=== PATIENT | female | born 1990 | race African-American/Black ===

== ENCOUNTER 2017-02-11 20:42 | Emergency (ER) | payer OTHER ==
[~2017-02-11] VITALS: Ht 170.2 cm; Wt 143.3 kg
[2017-02-11 21:53] LABS: BASO # 0.1 x10^3/uL (0.0-0.2); BASO % 1 % (0-3); EOS % 1 % (0-3); HEMATOCRIT 35.1 % (36.0-47.0); HEMOGLOBIN 11.4 g/dL (12.0-15.5); LYMPH # 2.2 x10^3/uL (1.0-4.8); LYMPH % 16 % (24-48); MEAN CORPUSCULAR HEMOGLOBIN 26 pg (25-35); MEAN CORPUSCULAR HGB CONC 32 g/dL (31-37); MEAN CORPUSCULAR VOLUME 81 fL (79-100); MONO % 5 % (0-9); NEUT % 77 % (31-73); PLATELET COUNT 313 x10^3/uL (140-400); RED BLOOD COUNT 4.35 x10^6/uL (3.50-5.40); RED CELL DISTRIBUTION WIDTH 16.7 % (11.5-14.5); WHITE BLOOD COUNT 13.6 x10^3/uL (4.0-11.0)
[2017-02-11 22:01] LABS: CALCIUM 8.8 mg/dL (8.5-10.1); CREATININE 0.7 mg/dL (0.6-1.0); GFR 122.4; POTASSIUM 3.9 mmol/L (3.5-5.1)
[2017-02-11 22:07] LABS: ALBUMIN 2.8 g/dL (3.4-5.0); ALBUMIN/GLOBULIN RATIO 0.6 (1.0-1.7); TOTAL BILIRUBIN 0.1 mg/dL (0.2-1.0); TOTAL PROTEIN 7.2 g/dL (6.4-8.2)
--- NOTE | 2017-02-11 23:00 | RAD ---
OB ultrasound History: Vaginal spotting, suprapubic pain for one week. Comparison: None this . Findings: Examination is technically difficult secondary to patient body habitus. Maternal ovaries are not seen. Complete survey anomalies was not performed secondary to early gestation. There is a single intrauterine gestation in breech presentation. The placenta is anterior in location. The amount of amniotic fluid subjectively appears appropriate. Cervix is closed with cervical length of 4.39 cm. Biometric data is as follows: BPD = 2.77 cm for 15 weeks 0 days. HC = 11.17 cm for 15 weeks 3 days. AC = 9.63 cm for 15 weeks 5 days. FL = 1.85 cm for 15 weeks 3 days. HC/AC = 1.16. Overall, the average ultrasound age is 15 weeks 3 days for an estimated date of delivery of August 02, 2017. The estimated heart rate is 162 beats per minute. IMPRESSION: 1. Single live intrauterine with average ultrasound age of 15 weeks 3 days. Estimated date of delivery is August 02, 2017. 2. Survey of anomalies was not performed. Such could be performed at 20 weeks gestation, after approximately 5 weeks. Electronically signed by: Oswald Lopez MD (02/11/2017 10:57 PM) [facility]
--- NOTE | 2017-02-11 23:09 | PHYS DOC ---
Past Medical History Past Medical History: Hypertension Past Surgical History: Cholecystectomy, Alcohol Use: Heavy Additional Information: denies now Drug Use: None Adult General Chief Complaint Chief Complaint: VAGINAL BLEEDING HPI HPI Patient is a 27 year old female, 4 para 2 who states she is about 15 weeks , presents with abdominal pain for about 2 days. The pain is in the midline and "feels like something inside of me is pulling in on my belly button and my rectum". Patient has never had this kind of pain before. Patient states she has had a bit of vaginal spotting but she has had that off and on with her and she didn't think it was anything to worry about. She came in for the pain. Patient states she is not constipated. She has loose stools ever since cholecystectomy. Patient has not had care yet. She recently moved to the area. She had an OB ultrasound in [place] before coming here. She does have a new OB appointment coming up on 02/19. Patient denies nausea or vomiting. She has been feeling pretty well. First was a miscarriage, she has a 4-year-old and a 1-year-old. She did have a . She has also had laparoscopic cholecystectomy. Review of Systems Review of Systems Constitutional: Denies fever or chills [] HENT: Denies nasal congestion or sore throat [] Respiratory: Denies cough or shortness of breath [] Cardiovascular: Denies chest pain GI: As in history of present illness : Denies dysuria or hematuria [] Musculoskeletal: Denies back pain or joint pain [] Integument: Denies rash or skin lesions [] Neurologic: Denies headache Allergies Allergies Allergies Coded Allergies Type Severity Reaction Last Updated Verified No Known Drug Allergies 02/11/17 No Physical Exam Physical Exam Constitutional: Well developed, well nourished, no acute distress, non-toxic appearance. Alert, mentating normally, warm and dry. HENT: Normocephalic, atraumatic, bilateral external ears normal, nose normal. [ ] Eyes: conjunctiva normal, no discharge. [] Neck: Normal range of motion, no stridor. [] Cardiovascular:Heart rate regular rhythm, no murmur [] Lungs & Thorax: Bilateral breath sounds clear to auscultation [] Abdomen: Obese, Bowel sounds normal, soft, nondistended, no masses, no pulsatile masses. There is mild tenderness in the midline and to the left of the midline. There is no right lower quadrant tenderness. No rebound or guarding. Skin: Warm, dry, no erythema, no rash. [] Extremities: No tenderness, no cyanosis, no clubbing, ROM intact, no edema. [] Neurologic: Alert and oriented X 3, normal motor function, no focal deficits noted. [] Current Patient Data Vital Signs Vital Signs Date Time Temp Pulse Resp B/P (MAP) Pulse Ox O2 Delivery O2 Flow Rate FiO2 02/11/17 20:57 99.0 94 18 141/67 (91) 100 Room Air 99.0 Lab Values Laboratory Tests Test 02/11/17 20:55 02/11/17 21:40 POC Urine HCG, Qualitative Hcg positive (Negative) White Blood Count 13.6 x10^3/uL (4.0-11.0) H Red Blood Count 4.35 x10^6/uL (3.50-5.40) Hemoglobin 11.4 g/dL (12.0-15.5) L Hematocrit 35.1 % (36.0-47.0) L Mean Corpuscular Volume 81 fL (79-100) Mean Corpuscular Hemoglobin 26 pg (25-35) Mean Corpuscular Hemoglobin Concent 32 g/dL (31-37) Red Cell Distribution Width 16.7 % (11.5-14.5) H Platelet Count 313 x10^3/uL (140-400) Neutrophils (%) (Auto) 77 % (31-73) H Lymphocytes (%) (Auto) 16 % (24-48) L Monocytes (%) (Auto) 5 % (0-9) Eosinophils (%) (Auto) 1 % (0-3) Basophils (%) (Auto) 1 % (0-3) Neutrophils # (Auto) 10.4 x10^3uL (1.8-7.7) H Lymphocytes # (Auto) 2.2 x10^3/uL (1.0-4.8) Monocytes # (Auto) 0.7 x10^3/uL (0.0-1.1) Eosinophils # (Auto) 0.2 x10^3/uL (0.0-0.7) Basophils # (Auto) 0.1 x10^3/uL (0.0-0.2) Sodium Level 138 mmol/L (136-145) Potassium Level 3.9 mmol/L (3.5-5.1) Chloride Level 104 mmol/L (98-107) Carbon Dioxide Level 26 mmol/L (21-32) Anion Gap 8 (6-14) Blood Urea Nitrogen 8 mg/dL (7-20) Creatinine 0.7 mg/dL (0.6-1.0) Estimated GFR (Cockcroft-Gault) 122.4 BUN/Creatinine Ratio 11 (6-20) Glucose Level 89 mg/dL (70-99) Calcium Level 8.8 mg/dL (8.5-10.1) Total Bilirubin 0.1 mg/dL (0.2-1.0) L Aspartate Amino Transferase (AST) 12 U/L (15-37) L Alanine Aminotransferase (ALT) 19 U/L (14-59) Alkaline Phosphatase 67 U/L (46-116) Total Protein 7.2 g/dL (6.4-8.2) Albumin 2.8 g/dL (3.4-5.0) L Albumin/Globulin Ratio 0.6 (1.0-1.7) L Laboratory Tests 02/11/17 21:40 Laboratory Tests 02/11/17 21:40 EKG EKG [] Radiology/Procedures Radiology/Procedures Ultrasound read by the radiologist. Live IUP 15 weeks 3 days with positive heart tones. No acute abnormality identified. [] Course & Med Decision Making Course & Med Decision Making Pertinent Labs and Imaging studies reviewed. (See chart for details) Blood type A+ Labs normal. Ultrasound read by the radiologist. Live IUP 15 weeks 3 days with positive heart tones. No acute abnormality identified. 27-year-old female 15 weeks presents with some nonspecific central abdominal pain. I'm not sure what is causing her pain. I don't believe she has appendicitis. I'm not finding any serious cause of her pain. She does have an appointment next week with her OB physician. I believe the patient is stable for discharge. See instructions for plan. [] Dragon Disclaimer Dragon Disclaimer This electronic medical record was generated, in whole or in part, using a voice recognition dictation system. Departure Departure Impression: Primary Impression: Second trimester Additional Impression: Abdominal pain affecting Disposition: HOME, SELF-CARE Condition: STABLE Referrals: NO PCP (PCP) Patient Instructions: Abdominal Pain During , [id number] Additional Instructions: Today, labs, ultrasound did not show the cause of your pain. I recommend for the next 1-2 days, eat clear liquids and a bland diet in small amounts. If you get worse, if you develop vomiting, if your pain worsens, return to emergency. See your OB doctor as planned. Your blood type is A + Problem Qualifiers NICOLAS WILKINSON MD Feb 11, 2017 23:08
[2017-02-11 23:11] VITALS: BP 129/57
== END 2017-02-11 23:12 | disposition home or self-care (01) ==
LOC: ER 20:42
DX: O26.892 Other specified pregnancy related conditions, second trimester (principal); R10.9 Unspecified abdominal pain; O16.2 Unspecified maternal hypertension, second trimester; Z3A.15 15 weeks gestation of pregnancy; Z90.49 Acquired absence of other specified parts of digestive tract
CPT/HCPCS: 36415; 76805; 80053; 81025; 85025; 86900; 86901; 99285-25

== ENCOUNTER → 2017-02-27 | Outpatient (CLI) | payer OTHER ==
[2017-02-11 23:11] VITALS: BP 129/57
[~2017-02-27] MED LIST: CEPH-263 PO
--- NOTE | 2017-02-27 14:27 | RAD ---
Obstetrical ultrasound, 02/27/2017: History: Check fetus, previous There is a single intrauterine fetus in a transverse orientation with the head on the maternal right. The biparietal diameter measures 3.7 cm compatible with a gestational age of 17-18 weeks. This corresponds well to the other measurements and yields a sonographic EDC of 08/03/2017. This correlates well with the EDC of 08/02/2017 established on the previous ultrasound exam of 05/11/2012. Normal activity and heart motion are seen. The heart rate is 139 bpm. The survey was limited by the patient's body habitus. The spine was suboptimally delineated. No specific abnormality is detected. A normal amount of amniotic fluid is present. The placenta lies anteriorly. The cervical length is 5.3 cm. The maternal ovaries were not visualized. IMPRESSION: Single viable intrauterine fetus of 17-18 weeks gestational age which has demonstrated normal interval growth since 02/11/2017.
== END | disposition home or self-care (01) ==
LOC: US 12:04
PROVIDERS: ATTEND Obstetrics & Gynecology
DX: O26.892 Other specified pregnancy related conditions, second trimester (principal); O34.219 Maternal care for unspecified type scar from previous cesarean delivery; Z3A.18 18 weeks gestation of pregnancy
CPT/HCPCS: 76805

== ENCOUNTER → 2017-03-25 | Outpatient (CLI) | payer OTHER ==
[2017-03-03 11:30] VITALS: BP 143/72
--- NOTE | 2017-03-25 17:13 | RAD ---
Ultrasound OB pelvis Indication: Previous section affecting . Technique: Grayscale, color Doppler and spectral waveform ultrasound images of the pelvis obtained Comparison: Previous study from 02/27/2017 Findings: The cervix measures 5.7 cm in length and is within normal limits. Placenta is anterior. Single intrauterine is visualized with cardiac activity of the weight of 144 bpm and cephalic position at the time of scanning. Spine is not well visualized which may be secondary to patient body habitus. movement, Stomach, bladder, cord insertion, kidneys visualized. The femoral length measures 3.57 cm corresponding to estimated gestation age of 21 weeks 2 days. The abdominal circumference measures 16.59 cm corresponding to estimated gestation age of 21 weeks 4 days. The biparietal diameter measures 5.04 cm corresponding to estimated gestation age of 21 weeks 2 days. The head circumference measures 18.88 cm corresponding to estimated gestation age of 21 weeks 1 day. Amniotic fluid index measures 10.1 cm which is within normal limits. Estimated weight of 424 g. Impression: Single viable intrauterine with estimated gestation age of 21 weeks 2 days with estimated due date of 08/03/2017.
== END | disposition home or self-care (01) ==
LOC: US 14:40
PROVIDERS: ATTEND Obstetrics & Gynecology
DX: O34.219 Maternal care for unspecified type scar from previous cesarean delivery (principal); Z3A.21 21 weeks gestation of pregnancy
CPT/HCPCS: 76805

== ENCOUNTER 2017-07-29 17:07 | Inpatient (IN) | payer OTHER ==
[2017-07-29 17:54] LABS: URINE HCG POC HCG NEGATIVE (Negative)
[2017-07-29 18:09] LABS: BILIRUBIN,URINE SMALL (NEG); CLARITY,URINE CLOUDY; COLOR,URINE AMBER; GLUCOSE,URINE NEGATIVE (NEG); NITRITE,URINE NEGATIVE (NEG); PROTEIN,URINE 100 mg/dL (NEG-TRACE)
[2017-07-29 18:14] LABS: BACTERIA,URINE MANY /HPF (0-FEW); SQUAMOUS EPITHELIAL CELL,UR MANY /LPF; WBC,URINE TNTC /HPF (0-4)
[2017-07-29] MEDS: fentaNYL PF VIAL 100 MCG/2 ML VIAL IV (18:22)
[2017-07-29] MEDS: ACETAMINOPHEN 500 MG TABLET PO (18:23)
[2017-07-29] MEDS: ONDANSETRON PF 4 MG/2 ML VIAL. IV (18:23)
[2017-07-29] MEDS: IV NORMAL SALINE 1000ML BAG 1,000 ML IV (18:24)
[2017-07-29 18:25] LABS: BASO # 0.1 x10^3/uL (0.0-0.2); BASO % 0 % (0-3); EOS % 0 % (0-3); HEMATOCRIT 32.6 % (36.0-47.0); HEMOGLOBIN 10.4 g/dL (12.0-15.5); LYMPH # 1.7 x10^3/uL (1.0-4.8); LYMPH % 9 % (24-48); MEAN CORPUSCULAR HEMOGLOBIN 24 pg (25-35); MEAN CORPUSCULAR HGB CONC 32 g/dL (31-37); MEAN CORPUSCULAR VOLUME 75 fL (79-100); MONO # 1.4 x10^3/uL (0.0-1.1); MONO % 7 % (0-9); NEUT # 16.6 x10^3uL (1.8-7.7); NEUT % 84 % (31-73); PLATELET COUNT 488 x10^3/uL (140-400); RED BLOOD COUNT 4.32 x10^6/uL (3.50-5.40); RED CELL DISTRIBUTION WIDTH 17.5 % (11.5-14.5); WHITE BLOOD COUNT 19.8 x10^3/uL (4.0-11.0)
[2017-07-29] MEDS ORDERED: CONTRAST GIVEN MC (18:30)
[2017-07-29 18:31] LABS: ANION GAP 14 (6-14); BLOOD UREA NITROGEN 5 mg/dL (7-20); BUN/CREATININE RATIO 5 (6-20); CALCIUM 8.8 mg/dL (8.5-10.1); CARBON DIOXIDE 25 mmol/L (21-32); CHLORIDE 99 mmol/L (98-107); GFR 81.1; GLUCOSE 103 mg/dL (70-99); POTASSIUM 3.4 mmol/L (3.5-5.1); SODIUM 138 mmol/L (136-145)
[2017-07-29 18:32] LABS: INR 1.1 (0.8-1.1); PARTIAL THROMBOPLASTIN TIME 30 SEC (24-38); PROTHROMBIN TIME PATIENT 13.4 SEC (11.7-14.0)
[2017-07-29 18:36] LABS: ADD MAN DIFF? YES
[2017-07-29 18:37] LABS: ALBUMIN/GLOBULIN RATIO 0.6 (1.0-1.7); ALK PHOS 105 U/L (46-116); ALT (SGPT) 47 U/L (14-59); AST (SGOT) 28 U/L (15-37); LIPASE 53 U/L (73-393); TOTAL BILIRUBIN 0.4 mg/dL (0.2-1.0); TOTAL PROTEIN 8.4 g/dL (6.4-8.2)
[2017-07-29] MEDS: IOHEXOL 300 MG/ML 100ML VIAL. IV (18:47)
[2017-07-29] MEDS ORDERED: cefTRIAXone SODIUM 2 GM in IV DEXTROSE 5% 100 ML IV (19:03)
[2017-07-29] MEDS: POTASSIUM CHLORIDE 20 MEQ TABLET.ER. PO (19:27)
[2017-07-29] MEDS: cefTRIAXone IV Push 2 GM VIAL. IVP (19:28)
[2017-07-29 19:55] LABS: % LYMPHS 10 % (24-48); % MONOS 4 % (0-10); % SEGS 86 % (35-66)
[2017-07-29 19:56] LABS: PLT ESTIMATE ADEQUATE (ADEQUATE)
[2017-07-29] MEDS: oxyCODONE/APAP 7.5/325 1 TAB TABLET PO (21:38)
[2017-07-30] MEDS: fentaNYL PF VIAL 100 MCG/2 ML VIAL IV ×4 (00:48→15:49)
[2017-07-30] MEDS: oxyCODONE/APAP 7.5/325 1 TAB TABLET PO ×2 (01:24→05:54)
[2017-07-30 09:13] LABS: ADD MAN DIFF? NO
[2017-07-30 09:19] LABS: BASO % 0 % (0-3); EOS % 0 % (0-3); HEMATOCRIT 29.1 % (36.0-47.0); LYMPH # 1.7 x10^3/uL (1.0-4.8); LYMPH % 9 % (24-48); MEAN CORPUSCULAR HEMOGLOBIN 24 pg (25-35); MEAN CORPUSCULAR HGB CONC 31 g/dL (31-37); MEAN CORPUSCULAR VOLUME 76 fL (79-100); MONO # 1.5 x10^3/uL (0.0-1.1); MONO % 8 % (0-9); NEUT # 16.4 x10^3uL (1.8-7.7); NEUT % 83 % (31-73); PLATELET COUNT 441 x10^3/uL (140-400); RED BLOOD COUNT 3.81 x10^6/uL (3.50-5.40); RED CELL DISTRIBUTION WIDTH 17.5 % (11.5-14.5); WHITE BLOOD COUNT 19.7 x10^3/uL (4.0-11.0)
[2017-07-30 09:46] LABS: ALBUMIN 2.4 g/dL (3.4-5.0); ALBUMIN/GLOBULIN RATIO 0.5 (1.0-1.7); ALK PHOS 95 U/L (46-116); ALT (SGPT) 41 U/L (14-59); ANION GAP 8 (6-14); AST (SGOT) 20 U/L (15-37); BLOOD UREA NITROGEN 4 mg/dL (7-20); BUN/CREATININE RATIO 4 (6-20); CALCIUM 8.6 mg/dL (8.5-10.1); CARBON DIOXIDE 28 mmol/L (21-32); CHLORIDE 103 mmol/L (98-107); GFR 81.1; GLUCOSE 91 mg/dL (70-99); SODIUM 139 mmol/L (136-145); TOTAL BILIRUBIN 0.5 mg/dL (0.2-1.0); TOTAL PROTEIN 7.3 g/dL (6.4-8.2)
[2017-07-30] MEDS: ONDANSETRON PF 4 MG/2 ML VIAL. IV ×3 (09:50→19:49)
[2017-07-30] MEDS: KETOROLAC 15 MG/ML VIAL. IV ×2 (11:02→19:49)
[2017-07-30] MEDS ORDERED: AMPICILLIN/SULBACTAM 3 GM in IV NORMAL SALINE 100ML 100 ML IV (12:00)
[2017-07-30] MEDS: AMPICILLIN/SULBACTAM IV Push 3 GM VIAL. IVP ×2 (12:16→17:43)
[2017-07-30] MEDS: CALCIUM CARBONATE 500 MG TAB.CHEW PO ×2 (16:38→19:35)
[2017-07-30] MEDS ORDERED: ONDANSETRON ODT 4 MG TAB.RAPDIS. PO (19:45)
[2017-07-30] MEDS ORDERED: cefTRIAXone IV Push 1 GM VIAL. IVP (21:00)
[2017-07-31] MEDS: AMPICILLIN/SULBACTAM IV Push 3 GM VIAL. IVP ×4 (00:16→18:37)
[2017-07-31] MEDS: KETOROLAC 15 MG/ML VIAL. IV ×2 (02:20→14:41)
[2017-07-31] MEDS: ACETAMINOPHEN 325 MG TABLET. PO ×2 (03:19→14:37)
[2017-07-31 03:59] LABS: ADD MAN DIFF? NO
[2017-07-31 04:00] LABS: BASO # 0.1 x10^3/uL (0.0-0.2); BASO % 0 % (0-3); EOS # 0.1 x10^3/uL (0.0-0.7); EOS % 1 % (0-3); HEMATOCRIT 27.4 % (36.0-47.0); HEMOGLOBIN 8.9 g/dL (12.0-15.5); LYMPH # 1.5 x10^3/uL (1.0-4.8); LYMPH % 7 % (24-48); MEAN CORPUSCULAR HEMOGLOBIN 24 pg (25-35); MEAN CORPUSCULAR HGB CONC 32 g/dL (31-37); MEAN CORPUSCULAR VOLUME 75 fL (79-100); MONO # 1.4 x10^3/uL (0.0-1.1); MONO % 7 % (0-9); NEUT # 18.1 x10^3uL (1.8-7.7); NEUT % 86 % (31-73); PLATELET COUNT 465 x10^3/uL (140-400); RED BLOOD COUNT 3.65 x10^6/uL (3.50-5.40); RED CELL DISTRIBUTION WIDTH 17.8 % (11.5-14.5); WHITE BLOOD COUNT 21.2 x10^3/uL (4.0-11.0)
[2017-07-31 04:14] LABS: ALBUMIN 2.4 g/dL (3.4-5.0); ALBUMIN/GLOBULIN RATIO 0.5 (1.0-1.7); ALK PHOS 94 U/L (46-116); ALT (SGPT) 51 U/L (14-59); ANION GAP 8 (6-14); AST (SGOT) 38 U/L (15-37); BLOOD UREA NITROGEN 6 mg/dL (7-20); BUN/CREATININE RATIO 5 (6-20); CALCIUM 8.3 mg/dL (8.5-10.1); CARBON DIOXIDE 27 mmol/L (21-32); CHLORIDE 100 mmol/L (98-107); CREATININE 1.1 mg/dL (0.6-1.0); GFR 72.6; GLUCOSE 101 mg/dL (70-99); POTASSIUM 3.3 mmol/L (3.5-5.1); SODIUM 135 mmol/L (136-145); TOTAL BILIRUBIN 0.4 mg/dL (0.2-1.0); TOTAL PROTEIN 7.4 g/dL (6.4-8.2)
[2017-07-31 04:18] LABS: LACTIC ACID 0.7 mmol/L (0.4-2.0)
[2017-07-31] MEDS: LACTOBACILLUS RHAMNOSUS GG 1 CAPSULE. PO (20:14)
[2017-08-01] MEDS: AMPICILLIN/SULBACTAM IV Push 3 GM VIAL. IVP ×4 (00:12→17:45)
[2017-08-01] MEDS: oxyCODONE/APAP 7.5/325 1 TAB TABLET PO ×3 (04:07→19:25)
[2017-08-01] MEDS: LACTOBACILLUS RHAMNOSUS GG 1 CAPSULE. PO ×2 (10:18→21:01)
[2017-08-02] MEDS: oxyCODONE/APAP 7.5/325 1 TAB TABLET PO ×4 (00:42→13:50)
[2017-08-02] MEDS: AMPICILLIN/SULBACTAM IV Push 3 GM VIAL. IVP ×3 (00:42→11:31)
[2017-08-02 05:15] LABS: ADD MAN DIFF? NO
[2017-08-02 05:31] LABS: BASO % 0 % (0-3); EOS # 0.4 x10^3/uL (0.0-0.7); EOS % 4 % (0-3); HEMATOCRIT 27.7 % (36.0-47.0); LYMPH # 1.4 x10^3/uL (1.0-4.8); LYMPH % 15 % (24-48); MEAN CORPUSCULAR HEMOGLOBIN 24 pg (25-35); MEAN CORPUSCULAR HGB CONC 33 g/dL (31-37); MEAN CORPUSCULAR VOLUME 75 fL (79-100); MONO # 0.5 x10^3/uL (0.0-1.1); MONO % 5 % (0-9); NEUT # 7.4 x10^3uL (1.8-7.7); NEUT % 77 % (31-73); PLATELET COUNT 504 x10^3/uL (140-400); RED BLOOD COUNT 3.69 x10^6/uL (3.50-5.40); RED CELL DISTRIBUTION WIDTH 17.6 % (11.5-14.5); WHITE BLOOD COUNT 9.6 x10^3/uL (4.0-11.0)
[2017-08-02 05:43] LABS: ANION GAP 9 (6-14); BLOOD UREA NITROGEN 6 mg/dL (7-20); CALCIUM 8.6 mg/dL (8.5-10.1); CARBON DIOXIDE 30 mmol/L (21-32); CHLORIDE 103 mmol/L (98-107); CREATININE 0.9 mg/dL (0.6-1.0); GFR 91.6; GLUCOSE 130 mg/dL (70-99); POTASSIUM 3.5 mmol/L (3.5-5.1); SODIUM 142 mmol/L (136-145)
[2017-08-02] MEDS: LACTOBACILLUS RHAMNOSUS GG 1 CAPSULE. PO (08:21)
== END 2017-08-02 16:22 | disposition home or self-care (01) | DRG 776 ==
LOC: ER 17:07 → 5 NORTH 19:06
DX: O85 Puerperal sepsis (principal); E44.0 Moderate protein-calorie malnutrition; E66.01 Morbid (severe) obesity due to excess calories; Z68.42 Body mass index [BMI] 45.0-49.9, adult; N12 Tubulo-interstitial nephritis, not specified as acute or chronic; O86.12 Endometritis following delivery; O10.93 Unspecified pre-existing hypertension complicating the puerperium; E87.6 Hypokalemia; O90.89 Other complications of the puerperium, not elsewhere classified; B95.1 Streptococcus, group B, as the cause of diseases classified elsewhere; R60.9 Edema, unspecified; O25.3 Malnutrition in the puerperium; F17.210 Nicotine dependence, cigarettes, uncomplicated; S30.1XXA Contusion of abdominal wall, initial encounter; O99.215 Obesity complicating the puerperium; W18.30XA Fall on same level, unspecified, initial encounter; Y93.89 Activity, other specified; Y99.8 Other external cause status; Y92.009 Unspecified place in unspecified non-institutional (private) residence as the place of occurrence of the external cause; Z87.440 Personal history of urinary (tract) infections; Z98.891 History of uterine scar from previous surgery
CPT/HCPCS: 36415; 71045; 74176; 74177; 76830; 76856; 80048; 80053; 81001; 81025; 83605; 83690; 83735; 85007; 85025; 85610; 85730; 86850; 86900; 86901; 87040; 87086; 96361; 96374; 96375; 99285; 99285-25; J0295; J0696; J1885; J2405; J3010; J7030; Q9967

== ENCOUNTER 2018-03-08 13:25 | Emergency (ER) | payer OTHER ==
[~2018-03-08] VITALS: Ht 170.2 cm; Wt 143.8 kg
[~2018-03-08 13:25] MED LIST changes: +AMOX1TAB61 PO; +DOCU-109 PO; +IBUP-1060 PO; +OXYC-323 PO
[2018-03-08 15:06] VITALS: BP 139/63
[2018-03-08] MEDS ORDERED: DOCO2CRE TP (15:10)
[2018-03-08] MEDS ORDERED: PENI250S14 PO (15:10)
--- NOTE | 2018-03-08 15:10 | PHYS DOC ---
Past Medical History Past Medical History: Hypertension Past Surgical History: Cholecystectomy, , Other Additional Past Surgical Histo: I AND D Alcohol Use: Heavy Drug Use: None Adult General Chief Complaint Chief Complaint: SORE THROAT HPI HPI Patient is a 28 year old female with history of hypertension who presents today complaining of sore throat since yesterday. Patient is also complaining of cold sores on the lower left lip since yesterday. Denies any fever. Denies any coughing or congestion. Review of Systems Review of Systems Constitutional: Denies fever or chills [] Eyes: Denies change in visual acuity, redness, or eye pain [] HENT: Reports sore throat and cold sore, denies nasal congestion Respiratory: Denies cough or shortness of breath [] Cardiovascular: No additional information not addressed in HPI [] GI: Denies abdominal pain, nausea, vomiting, bloody stools or diarrhea [] : Denies dysuria or hematuria [] Musculoskeletal: Denies back pain or joint pain [] Integument: Denies rash or skin lesions [] Neurologic: Denies headache, focal weakness or sensory changes [] All other systems were reviewed and found to be within normal limits, except as documented in this note. Allergies Allergies Allergies Coded Allergies Type Severity Reaction Last Updated Verified No Known Drug Allergies 02/11/17 No Physical Exam Physical Exam Constitutional: Well developed, well nourished, no acute distress, non-toxic appearance. [] HENT: Normocephalic, atraumatic, bilateral external ears normal, oropharynx moist, no oral exudates, nose normal. [] posterior pharynx with mild erythema and trace exudate bilaterally. +2 anterior cervical adenopathy Lower lip with cold sores Eyes: PERRLA, EOMI, conjunctiva normal, no discharge. [] Neck: Normal range of motion, no tenderness, supple, no stridor. [] Cardiovascular:Heart rate regular rhythm, no murmur [] Lungs & Thorax: Bilateral breath sounds clear to auscultation [] Abdomen: Bowel sounds normal, soft, no tenderness, no masses, no pulsatile masses. [] Skin: Warm, dry, no erythema, no rash. [] Back: No tenderness, no CVA tenderness. [] Extremities: No tenderness, no cyanosis, no clubbing, ROM intact, no edema. [] Neurologic: Alert and oriented X 3, normal motor function, normal sensory function, no focal deficits noted. [] Psychologic: Affect normal, judgement normal, mood normal. [] EKG EKG [] Radiology/Procedures Radiology/Procedures [] Course & Med Decision Making Course & Med Decision Making Pertinent Labs and Imaging studies reviewed. (See chart for details) This is a 28-year-old female patient with physical exam consistent of tonsillitis, she also has a cold sore. Be discharged with penicillin for 10 days. Given prescription for Abreva for the cold sores. Tylenol or Motrin for pain or fever. Instructed to use saltwater gargles. Follow-up with primary care doctor in 1-2 weeks. Dragon Disclaimer Dragon Disclaimer This electronic medical record was generated, in whole or in part, using a voice recognition dictation system. Departure Departure Impression: Primary Impression: Herpes labialis Additional Impression: Acute tonsillitis Disposition: 01 HOME, SELF-CARE Condition: STABLE Referrals: NO PCP (PCP) Follow-up with your own doctor in 1-2 weeks Patient Instructions: Cold Sore, [id number], Tonsillitis, [id number] Additional Instructions: You were evaluated in the emergency room and noted to have acute tonsillitis and a cold sore. Take the prescribed antibiotics until completed, use the prescribed cream on your lips as ordered. Follow-up with your doctor in 1-2 weeks. Take Tylenol /Motrin for pain or fever. Use saltwater gargles. Scripts Docosanol (ABREVA) 2 Gm Cream..g. 2 GM TP Q2HR W/A, #1 EACH Prov: CARLOS FREIRE APRN 03/08/18 Penicillin V Potassium (PENICILLIN V POTASSIUM) 250 Mg/5 Ml Soln.recon 10 ML PO TID, #300 ML Prov: CARLOS FREIRE APRN 03/08/18 Problem Qualifiers Additional Impression: Acute tonsillitis Pharyngitis/tonsillitis etiology: unspecified etiology Qualified Codes: J03.90 - Acute tonsillitis, unspecified CARLOS FREIRE APRN Mar 08, 2018 15:10
== END 2018-03-08 15:24 | disposition home or self-care (01) ==
LOC: ER 13:25
DX: J03.90 Acute tonsillitis, unspecified (principal); B00.1 Herpesviral vesicular dermatitis; I10 Essential (primary) hypertension; F10.20 Alcohol dependence, uncomplicated
CPT/HCPCS: 99283

== ENCOUNTER 2018-05-05 19:47 | Emergency (ER) | payer OTHER ==
[~2018-05-05] VITALS: Ht 170.2 cm; Wt 141.1 kg
[~2018-05-05 19:47] MED LIST changes: +DOCO2CRE TP; -OXYC-323 PO; +OXYC1TAB15 PO; +PENI250S14 PO
[2018-05-05 19:55] VITALS: BP 155/70
[2018-05-05 20:14] LABS: BILIRUBIN,URINE NEGATIVE (NEG); CLARITY,URINE CLEAR; COLOR,URINE YELLOW; NITRITE,URINE NEGATIVE (NEG); PH,URINE 6.5; PROTEIN,URINE NEGATIVE (NEG-TRACE)
[2018-05-05 20:16] LABS: BASO % 0 % (0-3); EOS # 0.1 x10^3/uL (0.0-0.7); EOS % 1 % (0-3); HEMATOCRIT 32.3 % (36.0-47.0); HEMOGLOBIN 11.3 g/dL (12.0-15.5); LYMPH # 1.6 x10^3/uL (1.0-4.8); LYMPH % 14 % (24-48); MEAN CORPUSCULAR HEMOGLOBIN 28 pg (25-35); MEAN CORPUSCULAR HGB CONC 35 g/dL (31-37); MEAN CORPUSCULAR VOLUME 80 fL (79-100); MONO # 0.5 x10^3/uL (0.0-1.1); MONO % 4 % (0-9); NEUT # 9.3 x10^3uL (1.8-7.7); NEUT % 80 % (31-73); PLATELET COUNT 292 x10^3/uL (140-400); RED BLOOD COUNT 4.05 x10^6/uL (3.50-5.40); RED CELL DISTRIBUTION WIDTH 18.2 % (11.5-14.5); WHITE BLOOD COUNT 11.6 x10^3/uL (4.0-11.0)
[2018-05-05 20:19] LABS: BACTERIA,URINE MANY /HPF (0-FEW); RBC,URINE OCC /HPF (0-2); SQUAMOUS EPITHELIAL CELL,UR MANY /LPF
[2018-05-05 20:22] LABS: BARBITURATES NEG (NEG); BENZODIAZEPINES NEG (NEG); CANNABINOIDS NEG (NEG); COCAINE NEG (NEG); METHADONE NEG (NEG); OPIATES NEG (NEG); PHENCYCLIDINE NEG (NEG)
[2018-05-05 20:26] LABS: AMPHETAMINE/METHAMPHETAMINE NEG (NEG)
--- NOTE | 2018-05-05 20:29 | PHYS DOC ---
Past Medical History Past Medical History: Other Additional Past Medical Histor: GESTATIONAL DM Past Surgical History: Cholecystectomy Additional Past Surgical Histo: I AND D Alcohol Use: Occasionally Drug Use: None Adult General Chief Complaint Chief Complaint: ABDOMINAL PAIN IN [facility] HPI Patient is a 28 year old female one miscarriage currently 18 weeks who presents today complaining of 7 out of 10 left lower quadrant abdominal pain described as sharp and intermittent that has been going on for 1 month. Patient denies anything exacerbating or making the pain better. Denies any nausea vomiting. Patient states she had spotting 2 weeks ago. Patient also states she's had urinary frequency for month. [employer] Dr. Zhang Review of Systems Review of Systems Constitutional: Denies fever or chills [] Eyes: Denies change in visual acuity, redness, or eye pain [] HENT: Denies nasal congestion or sore throat [] Respiratory: Denies cough or shortness of breath [] Cardiovascular: No additional information not addressed in HPI [] GI: Reports left lower quadrant abdominal pain, denies nausea, vomiting, bloody stools or diarrhea [] : Reports urinary frequency. Denies dysuria or hematuria [] Musculoskeletal: Denies back pain or joint pain [] Integument: Denies rash or skin lesions [] Neurologic: Denies headache, focal weakness or sensory changes [] All other systems were reviewed and found to be within normal limits, except as documented in this note. Allergies Allergies Allergies Coded Allergies Type Severity Reaction Last Updated Verified No Known Drug Allergies 02/11/17 No Physical Exam Physical Exam Constitutional: Well developed, well nourished, no acute distress, non-toxic appearance. [] HENT: Normocephalic, atraumatic, bilateral external ears normal, oropharynx moist, no oral exudates, nose normal. [] Eyes: PERRLA, EOMI, conjunctiva normal, no discharge. [] Neck: Normal range of motion, no tenderness, supple, no stridor. [] Cardiovascular:Heart rate regular rhythm, no murmur [] Lungs & Thorax: Bilateral breath sounds clear to auscultation [] Abdomen: Gravid abdomen. Bowel sounds normal, soft, no tenderness, no masses, no pulsatile masses. [] Pelvic exam External pelvic appears normal, cervix not well visualized due to body habitus, no adnexal tenderness, no CMT. Trace amount of white discharge in the vaginal vault. Skin: Warm, dry, no erythema, no rash. [] Back: No tenderness, no CVA tenderness. [] Extremities: No tenderness, no cyanosis, no clubbing, ROM intact, no edema. [] Neurologic: Alert and oriented X 3, normal motor function, normal sensory function, no focal deficits noted. [] Psychologic: Affect normal, judgement normal, mood normal. [] Current Patient Data Vital Signs Vital Signs Date Time Temp Pulse Resp B/P (MAP) Pulse Ox O2 Delivery O2 Flow Rate FiO2 05/05/18 19:55 99.1 98 18 155/70 (98) 99 Room Air 99.1 Lab Values Laboratory Tests Test 05/05/18 19:56 05/05/18 20:05 Urine Collection Type Unknown Urine Color Yellow Urine Clarity Clear Urine pH 6.5 Urine Specific [place] 1.015 Urine Protein Negative mg/dL (NEG-TRACE) Urine Glucose (UA) Negative mg/dL (NEG) Urine Ketones (Stick) Negative mg/dL (NEG) Urine Blood Negative (NEG) Urine Nitrite Negative (NEG) Urine Bilirubin Negative (NEG) Urine Urobilinogen Dipstick 1.0 mg/dL (0.2 mg/dL) Urine Leukocyte Esterase Negative (NEG) Urine RBC Occ /HPF (0-2) Urine WBC 1-4 /HPF (0-4) Urine Squamous Epithelial Cells Many /LPF Urine Bacteria Many /HPF (0-FEW) Urine Mucus Mod /LPF Urine Opiates Screen Neg (NEG) Urine Methadone Screen Neg (NEG) Urine Barbiturates Neg (NEG) Urine Phencyclidine Screen Neg (NEG) Urine Amphetamine/Methamphetamine Neg (NEG) Urine Benzodiazepines Screen Neg (NEG) Urine Cocaine Screen Neg (NEG) Urine Cannabinoids Screen Neg (NEG) Urine Ethyl Alcohol Neg (NEG) White Blood Count 11.6 x10^3/uL (4.0-11.0) H Red Blood Count 4.05 x10^6/uL (3.50-5.40) Hemoglobin 11.3 g/dL (12.0-15.5) L Hematocrit 32.3 % (36.0-47.0) L Mean Corpuscular Volume 80 fL (79-100) Mean Corpuscular Hemoglobin 28 pg (25-35) Mean Corpuscular Hemoglobin Concent 35 g/dL (31-37) Red Cell Distribution Width 18.2 % (11.5-14.5) H Platelet Count 292 x10^3/uL (140-400) Neutrophils (%) (Auto) 80 % (31-73) H Lymphocytes (%) (Auto) 14 % (24-48) L Monocytes (%) (Auto) 4 % (0-9) Eosinophils (%) (Auto) 1 % (0-3) Basophils (%) (Auto) 0 % (0-3) Neutrophils # (Auto) 9.3 x10^3uL (1.8-7.7) H Lymphocytes # (Auto) 1.6 x10^3/uL (1.0-4.8) Monocytes # (Auto) 0.5 x10^3/uL (0.0-1.1) Eosinophils # (Auto) 0.1 x10^3/uL (0.0-0.7) Basophils # (Auto) 0.0 x10^3/uL (0.0-0.2) Ethyl Alcohol Level < 10 mg/dL (0-10) Laboratory Tests 05/05/18 20:05 Microbiology 05/05/18 Wet Prep - Final, Complete EKG EKG [] Radiology/Procedures Radiology/Procedures [] Course & Med Decision Making Course & Med Decision Making Pertinent Labs and Imaging studies reviewed. (See chart for details) This is a 28-year-old female patient currently 18 weeks 5 para 3 presenting today complaining of left lower quadrant abdominal pain and urinary frequency for 1 month. 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 She also states she'll follow-up with her own OB for ultrasound. She is requesting urine analysis only. Blood group A+ from previous lab work. Urine analysis is noted for bacteria. Patient was discharged with cephalexin. Follow-up with her [employer]. Tylenol for pain. Dragon Disclaimer Dragon Disclaimer This electronic medical record was generated, in whole or in part, using a voice recognition dictation system. Departure Departure Impression: Primary Impression: Urinary tract infection Additional Impression: Abdominal pain in Disposition: 01 HOME, SELF-CARE Condition: STABLE Referrals: NO PCP (PCP) follow up in 1-2 weeks PEGHEE,GRETEL G Jr MD follow up in 1-2 Patient Instructions: Abdominal Pain During , Urinary Tract Infection Additional Instructions: You have urinary tract infection, ensure you complete your antibiotics. Take Tylenol as needed for pain. Follow-up with your [employer]ER in the course of this week or next week. Come back to the emergency room at any point symptoms worsen. Scripts Cephalexin (CEPHALEXIN) 500 Mg Tablet 1 TAB PO BID, #14 TAB Prov: CARLOS FREIRE APRN 05/05/18 Problem Qualifiers Primary Impression: Urinary tract infection Urinary tract infection type: site unspecified Hematuria presence: without hematuria Qualified Codes: N39.0 - Urinary tract infection, site not specified Additional Impression: Abdominal pain in Trimester: second trimester Qualified Codes: O26.892 - Other specified related conditions, second trimester; R10.9 - Unspecified abdominal pain CARLOS FREIRE APRN May 05, 2018 20:29
[2018-05-05 20:37] LABS: CALCIUM 8.5 mg/dL (8.5-10.1); CREATININE 0.7 mg/dL (0.6-1.0); GFR 121.5; POTASSIUM 3.7 mmol/L (3.5-5.1)
[2018-05-05 20:43] LABS: ALBUMIN 2.7 g/dL (3.4-5.0); ALBUMIN/GLOBULIN RATIO 0.6 (1.0-1.7); TOTAL BILIRUBIN 0.2 mg/dL (0.2-1.0); TOTAL PROTEIN 7.3 g/dL (6.4-8.2)
[2018-05-05] MEDS ORDERED: CEPH500T PO (20:56)
[2018-05-07 14:35] LABS: GC PROBE Negative (Negative)
== END 2018-05-05 21:17 | disposition home or self-care (01) ==
LOC: ER 19:47
DX: O23.42 Unspecified infection of urinary tract in pregnancy, second trimester (principal); Z3A.18 18 weeks gestation of pregnancy; Z90.49 Acquired absence of other specified parts of digestive tract
CPT/HCPCS: 36415; 80053; 80307; 81001; 84702; 85025; 87086; 87491; 87591; 99283; G0480; Q0111

== ENCOUNTER 2018-08-16 13:09 | Observation (INO) | payer OTHER ==
[~2018-08-16 13:09] MED LIST changes: +CEPH500T PO
[2018-08-16] MEDS ORDERED: IV RINGERS,LACTATED 1000ML 1,000 ML IV SCH (13:30)
[2018-08-16 13:52] LABS: BILIRUBIN,URINE NEGATIVE (NEG); CLARITY,URINE CLEAR; COLOR,URINE YELLOW; NITRITE,URINE NEGATIVE (NEG); PROTEIN,URINE NEGATIVE (NEG-TRACE); UROBILINOGEN,URINE 0.2 mg/dL (0.2 mg/dL)
[2018-08-16 14:18] LABS: BACTERIA,URINE 0 /HPF (0-FEW); RBC,URINE 0 /HPF (0-2); SQUAMOUS EPITHELIAL CELL,UR OCC /LPF; WBC,URINE OCC /HPF (0-4)
[2018-08-16] MEDS ORDERED: IV DEXTROSE 5%-LACT RINGERS 1,000 ML IV SCH (15:00)
== END 2018-08-16 16:00 | disposition home or self-care (01) ==
LOC: 3 SO LND 13:09
PROVIDERS: ADMIT Specialist; ATTEND Specialist
DX: O26.893 Other specified pregnancy related conditions, third trimester (principal); R10.30 Lower abdominal pain, unspecified; Z3A.33 33 weeks gestation of pregnancy
CPT/HCPCS: 81001; G0378; G0379

== ENCOUNTER 2018-08-26 11:58 | Inpatient (IN) | payer OTHER ==
[~2018-08-26] VITALS: Ht 157.5 cm; Wt 150.1 kg
[2018-08-26] MEDS ORDERED: 0.9 % SODIUM CHLORIDE 10 ML DISP.SYRIN. IV PRN ×2 (13:00→16:00)
[2018-08-26] MEDS ORDERED: TERBUTALINE 1 MG/ML VIAL. SQ PRN (13:00)
[2018-08-26] MEDS ORDERED: CITRIC ACID/SODIUM CITRATE 30 ML SOLUTION. PO PRN (13:00)
[2018-08-26] MEDS ORDERED: OXYTOCIN 30 UNIT/500 ML PREMIX 500 ML IV PRN ×2 (13:00→16:00)
[2018-08-26] MEDS ORDERED: LABETALOL 20 MG/4 ML DISP.SYRIN. IVP PRN (13:00)
[2018-08-26 13:17] LABS: BILIRUBIN,URINE NEGATIVE (NEG); CLARITY,URINE CLEAR; COLOR,URINE YELLOW; NITRITE,URINE NEGATIVE (NEG); PROTEIN,URINE NEGATIVE (NEG-TRACE); UROBILINOGEN,URINE 0.2 mg/dL (0.2 mg/dL)
[2018-08-26 13:24] LABS: BARBITURATES NEG (NEG); BENZODIAZEPINES NEG (NEG); CANNABINOIDS NEG (NEG); COCAINE NEG (NEG); METHADONE NEG (NEG); OPIATES NEG (NEG); PHENCYCLIDINE NEG (NEG)
[2018-08-26 13:24] LABS: BASO % 0 % (0-3); EOS # 0.1 x10^3/uL (0.0-0.7); EOS % 1 % (0-3); HEMATOCRIT 35.4 % (36.0-47.0); HEMOGLOBIN 11.6 g/dL (12.0-15.5); LYMPH # 1.8 x10^3/uL (1.0-4.8); LYMPH % 15 % (24-48); MEAN CORPUSCULAR HEMOGLOBIN 26 pg (25-35); MEAN CORPUSCULAR HGB CONC 33 g/dL (31-37); MEAN CORPUSCULAR VOLUME 81 fL (79-100); MONO # 0.9 x10^3/uL (0.0-1.1); MONO % 7 % (0-9); NEUT # 9.8 x10^3uL (1.8-7.7); NEUT % 78 % (31-73); PLATELET COUNT 278 x10^3/uL (140-400); RED BLOOD COUNT 4.39 x10^6/uL (3.50-5.40); RED CELL DISTRIBUTION WIDTH 15.8 % (11.5-14.5); WHITE BLOOD COUNT 12.6 x10^3/uL (4.0-11.0)
[2018-08-26 13:27] LABS: AMPHETAMINE/METHAMPHETAMINE NEG (NEG)
[2018-08-26 13:30] LABS: SQUAMOUS EPITHELIAL CELL,UR FEW /LPF
[2018-08-26 13:32] LABS: BACTERIA,URINE 0 /HPF (0-FEW); RBC,URINE 0 /HPF (0-2); WBC,URINE OCC /HPF (0-4)
[2018-08-26] MEDS ORDERED: METOCLOPRAMIDE HCL 10 MG/2 ML VIAL. ONE (13:40)
[2018-08-26] MEDS ORDERED: PHENYLEPHRINE in 0.9% NACL PF 1 MG/10 ML SYRINGE. IV ONE (13:40)
[2018-08-26] MEDS ORDERED: FAMOTIDINE 20 MG/2 ML VIAL ONE (13:40)
[2018-08-26] MEDS ORDERED: ONDANSETRON PF 4 MG/2 ML VIAL. ONE (13:40)
[2018-08-26] MEDS ORDERED: ePHEDrine PF IN SALINE 50 MG/10 ML SYRINGE. IV ONE (13:40)
[2018-08-26] MEDS ORDERED: OXYTOCIN 10 UNIT/ML VIAL. ONE (13:40)
[2018-08-26 13:41] LABS: CALCIUM 9.1 mg/dL (8.5-10.1); CREATININE 0.7 mg/dL (0.6-1.0); GFR 121.5; POTASSIUM 3.7 mmol/L (3.5-5.1)
[2018-08-26] MEDS ORDERED: fentaNYL PF VIAL 100 MCG/2 ML VIAL ONE (13:41)
[2018-08-26] MEDS ORDERED: DEXAMETHASONE SOD PHOS 4 MG/ML VIAL ONE (13:41)
[2018-08-26] MEDS ORDERED: MORPHINE PF 5 MG/10 ML VIAL. ONE (13:41)
[2018-08-26] MEDS ORDERED: BETAMET ACET&NA PHOS 30 MG/5 ML VIAL. IM ONE (13:45)
[2018-08-26] MEDS ORDERED: TERBUTALINE 1 MG/ML VIAL. SQ ONE (13:45)
[2018-08-26 13:46] LABS: ALBUMIN 2.5 g/dL (3.4-5.0); ALBUMIN/GLOBULIN RATIO 0.6 (1.0-1.7); TOTAL BILIRUBIN 0.2 mg/dL (0.2-1.0); TOTAL PROTEIN 6.6 g/dL (6.4-8.2)
[2018-08-26] MEDS: IV RINGERS,LACTATED 1000ML 1,000 ML IV SCH ×2 (13:49→20:02)
[2018-08-26] MEDS ORDERED: miSOPROStol 200 MCG TABLET ONE ×2 (14:00)
[2018-08-26] MEDS ORDERED: ceFAZolin SODIUM 3 GM in IV DEXTROSE 5% 100ML 100 ML IV PRN (14:00)
--- NOTE | 2018-08-26 14:07 | PDOC1 ---
OB - History Hx of Present Care: Good Care Ultrasounds: Normal mid trimester US Obstetrical Complications: None Medical Complications: Other (CHTN) Past Family/Social History * Past Medical, Surgical, Family and Obstetric Histories reviewed from chart. Rubella: Immune RPR/VDRL: Negative GBS Status: Unknown HBsAG: Negative OB - Chief Complaint & HPI Date of Admission: Date of Admission: August 26, 2018 at 11:58 Chief Complaint/History : 5 Para: 3 EGA: 34 Reason for admission: labor (PTL ) Indication for : desires repeat Admission Nurse Assessment Rev: Yes OB - Admission Exam Physical Exam Vitals: VS - Last 72 Hours, by Label Date Time Temp Pulse Resp B/P (MAP) Pulse Ox O2 Delivery O2 Flow Rate FiO2 08/26/18 13:45 84 160/80 HEENT: Normal Heart: Regular Rate Lungs: Clear Abdomen: Gravid, Non tender, Soft Extremities: Edema Reflexes: Normal Cervical Dilatation: 6cm Effacement: 75% Station: -2 Membranes: Intact Heart Rate: Normal Accelerations: Accelerations Present Decelerations: No decelerations Contractions on Admission: < 5 Minutes Apart Intensity: Moderate Text A: 34 wks IUP H/o c/s x 3 PTL P: Admit for repeat c/s. Give betamethasone. GRETEL MCKINNEY Jr, MD August 26, 2018 14:07
[2018-08-26 14:12] LABS: CREATININE,RANDOM URINE 16.7 mg/dL (Not Establ.)
[2018-08-26] MEDS ORDERED: CHLOROPROCAINE 3% MPF 20 ML VIAL. ONE (14:30)
[2018-08-26] MEDS ORDERED: LIDOCAINE 2% PF 5 ML VIAL. ONE (15:03)
--- NOTE | 2018-08-26 15:50 | PDOC4 ---
OB Operative Note Date: August 26, 2018 PRE OP DIAGNOSIS: Previoujs C- section (PTL, CHTN) POST OP DIAGNOSIS: Other (same) OPERATION PERFORMED: R KTSC Surgeon Anesthesia: Regional (Spinal) Blood Loss 900 ml Specimen placenta and OB Findings: Position (Vertex), Sex (Female), (8/9), Weight (5 Lb 3 oz) Complications none Additional Remarks pt. GRETEL Muniz Jr, MD August 26, 2018 15:49
[2018-08-26] MEDS ORDERED: ZOLPIDEM 5 MG TABLET. PO PRN (16:00)
[2018-08-26] MEDS ORDERED: ONDANSETRON PF 4 MG/2 ML VIAL. IV PRN (16:00)
[2018-08-26] MEDS ORDERED: diphenhydrAMINE ORAL ELIXIR 12.5 MG/5 ML ML PO PRN (16:00)
[2018-08-26] MEDS ORDERED: MAG HYDROX/ALUMINUM HYD/SIMETH 30 ML ORAL.SUSP PO PRN (16:00)
[2018-08-26] MEDS: KETOROLAC 30 MG/ML VIAL. IV PRN ×2 (16:11→23:15)
--- NOTE | 2018-08-26 16:33 | OP ---
DATE OF SURGERY: 08/26/2018 PREOPERATIVE DIAGNOSES: 1. A 34 weeks intrauterine . 2. Previous section x 3. 3. labor. POSTOPERATIVE DIAGNOSES: 1. A 34 weeks intrauterine . 2. Previous section x 3. 3. labor. PROCEDURE: Repeat low transverse section. SURGEON: Gretel Angeles MD ANESTHESIA: Spinal. ESTIMATED BLOOD LOSS: 900 mL. COMPLICATIONS: None. FINDINGS: Viable female , Apgars 8 and 9, weight 5 pounds 3 ounces. Three-vessel cord placenta delivered manually. SUMMARY: A 28-year-old 5, para 3, A1 at 34-1/2 weeks, presented in active labor. The patient has a history of x 3. She was dilated up to 6 cm dilation with bulging bag. She was counseled on need for emergent section due to labor and history of previous section x 3. She was counseled on risks, benefits and expectations, voiced clear understanding and agreed to proceed. DESCRIPTION OF PROCEDURE: The patient was taken to surgery suite and placed in supine position. She was prepped with ChloraPrep and draped in a sterile fashion. After adequate anesthesia, an elliptical incision to remove the previous Pfannenstiel skin incision was performed using scalpel and Bovie cautery and Allis clamps. The dense adhesions were dissected with Bovie cautery down to and through the fascia. Fascia was extended laterally using curved Spears scissors as well as with Bovie cautery. The abdominal rectus muscles were then dissected free of the fascia anteriorly using Bovie cautery. The same process took place inferiorly. The abdominal rectus was dissected bluntly. Peritoneum was entered bluntly. Curved Spears scissors was utilized to extend the peritoneum incision inferiorly. Two laps were placed next to the uterus. Willem ring retractor was placed. There were multiple adhesions that were bluntly taken down in a sharp dissection. A low transverse hysterotomy incision made with scalpel down to the amniotic sac. The hysterotomy incision extended laterally and superiorly digitally. Amniotomy was performed with Allis clamp. With the aid of fundal pressure, the infant's head was delivered. With additional fundal pressure, the anterior shoulder was delivered followed by posterior shoulder and rest of the female infant was delivered. was suctioned with a bulb syringe orally and nasally, umbilical cord was clamped twice and cut and a viable female was handed to waiting nursing staff. Umbilical cord blood as well as arterial pH was obtained. Three-vessel cord placenta was delivered manually. The uterus was kept intraabdominally. The hysterotomy incision was reapproximated using 1 Vicryl suture in a running locked fashion. Partially imbricated layer of 1 Vicryl suture was utilized as well for better hemostasis. Three [id number] sutures were placed on the hysterotomy incision for better hemostasis. Uterus palpated firm. Fallopian tubes and ovaries appeared normal bilaterally. The pericolic gutters were cleared of clot and debris. Patrick was placed over the hysterotomy incision for better hemostasis as well. Willem ring retractor was removed. The two laps were removed. The peritoneum was reapproximated using 1 Vicryl suture in running fashion. Fascia was reapproximated using the Stratafix. The skin was reapproximated using 4-0 Vicryl suture in subcuticular manner. Prevena wound VAC was placed. The patient tolerated the procedure well and was taken to recovery room in stable condition. Sponge and needle count correct x 3. GRETEL ANGELES MD DR: RADHA/braden JOB#: [id number] / [id number]
[2018-08-26] MEDS ORDERED: diphenhydrAMINE 50 MG/ML VIAL IVP PRN (18:45)
[2018-08-26 19:00] VITALS: BP 149/79
[2018-08-26 20:00] VITALS: BP 149/77
[2018-08-27 01:30] VITALS: BP 138/69
[2018-08-27] MEDS: IV RINGERS,LACTATED 1000ML 1,000 ML IV SCH ×3 (04:54→20:54)
[2018-08-27 05:16] LABS: BASO % 0 % (0-3); EOS % 0 % (0-3); HEMATOCRIT 28.5 % (36.0-47.0); HEMOGLOBIN 9.6 g/dL (12.0-15.5); LYMPH # 1.3 x10^3/uL (1.0-4.8); LYMPH % 7 % (24-48); MEAN CORPUSCULAR HEMOGLOBIN 27 pg (25-35); MEAN CORPUSCULAR HGB CONC 34 g/dL (31-37); MEAN CORPUSCULAR VOLUME 80 fL (79-100); MONO % 5 % (0-9); NEUT # 16.6 x10^3uL (1.8-7.7); NEUT % 88 % (31-73); PLATELET COUNT 259 x10^3/uL (140-400); RED BLOOD COUNT 3.54 x10^6/uL (3.50-5.40); RED CELL DISTRIBUTION WIDTH 15.7 % (11.5-14.5)
[2018-08-27] MEDS: KETOROLAC 30 MG/ML VIAL. IV PRN (06:20)
[2018-08-27] MEDS: oxyCODONE/APAP 5/325 1 TAB TABLET PO PRN ×3 (06:21→22:56)
[2018-08-27 06:30] VITALS: BP 131/62
[2018-08-27 07:39] LABS: % BANDS 3 % (0-9); % EOS 1 % (0-5); % LYMPHS 9 % (24-48); % MONOS 5 % (0-10); % SEGS 82 % (35-66); PLT ESTIMATE ADEQUATE (ADEQUATE)
--- NOTE | 2018-08-27 08:26 | PDOC ---
OB Progress Note Date of Service 08/27/18 Time of Evaluation 0825 Notes Pt. feeling well. No complaints. Pain controlled. Lab Laboratory Tests Test 08/26/18 13:00 08/26/18 13:10 08/27/18 04:40 Urine Collection Type Unknown Urine Color Yellow Urine Clarity Clear Urine pH 7.0 Urine Specific [place] <=1.005 Urine Protein Negative mg/dL (NEG-TRACE) Urine Glucose (UA) Negative mg/dL (NEG) Urine Ketones (Stick) Negative mg/dL (NEG) Urine Blood Trace (NEG) Urine Nitrite Negative (NEG) Urine Bilirubin Negative (NEG) Urine Urobilinogen Dipstick 0.2 mg/dL (0.2 mg/dL) Urine Leukocyte Esterase Negative (NEG) Urine RBC 0 /HPF (0-2) Urine WBC Occ /HPF (0-4) Urine Squamous Epithelial Cells Few /LPF Urine Bacteria 0 /HPF (0-FEW) Urine Random Creatinine 16.7 mg/dL (Not Establ.) Urine Random Total Protein < 6.0 mg/dL (Not Establ.) Urine Protein/Creatinine Ratio mg/g (0-200) Urine Opiates Screen Neg (NEG) Urine Methadone Screen Neg (NEG) Urine Barbiturates Neg (NEG) Urine Phencyclidine Screen Neg (NEG) Urine Amphetamine/Methamphetamine Neg (NEG) Urine Benzodiazepines Screen Neg (NEG) Urine Cocaine Screen Neg (NEG) Urine Cannabinoids Screen Neg (NEG) Urine Ethyl Alcohol Neg (NEG) White Blood Count 12.6 x10^3/uL (4.0-11.0) 19.0 x10^3/uL (4.0-11.0) Red Blood Count 4.39 x10^6/uL (3.50-5.40) 3.54 x10^6/uL (3.50-5.40) Hemoglobin 11.6 g/dL (12.0-15.5) 9.6 g/dL (12.0-15.5) Hematocrit 35.4 % (36.0-47.0) 28.5 % (36.0-47.0) Mean Corpuscular Volume 81 fL (79-100) 80 fL (79-100) Mean Corpuscular Hemoglobin 26 pg (25-35) 27 pg (25-35) Mean Corpuscular Hemoglobin Concent 33 g/dL (31-37) 34 g/dL (31-37) Red Cell Distribution Width 15.8 % (11.5-14.5) 15.7 % (11.5-14.5) Platelet Count 278 x10^3/uL (140-400) 259 x10^3/uL (140-400) Neutrophils (%) (Auto) 78 % (31-73) 88 % (31-73) Lymphocytes (%) (Auto) 15 % (24-48) 7 % (24-48) Monocytes (%) (Auto) 7 % (0-9) 5 % (0-9) Eosinophils (%) (Auto) 1 % (0-3) 0 % (0-3) Basophils (%) (Auto) 0 % (0-3) 0 % (0-3) Neutrophils # (Auto) 9.8 x10^3uL (1.8-7.7) 16.6 x10^3uL (1.8-7.7) Lymphocytes # (Auto) 1.8 x10^3/uL (1.0-4.8) 1.3 x10^3/uL (1.0-4.8) Monocytes # (Auto) 0.9 x10^3/uL (0.0-1.1) 1.0 x10^3/uL (0.0-1.1) Eosinophils # (Auto) 0.1 x10^3/uL (0.0-0.7) 0.0 x10^3/uL (0.0-0.7) Basophils # (Auto) 0.0 x10^3/uL (0.0-0.2) 0.0 x10^3/uL (0.0-0.2) Sodium Level 139 mmol/L (136-145) Potassium Level 3.7 mmol/L (3.5-5.1) Chloride Level 102 mmol/L (98-107) Carbon Dioxide Level 27 mmol/L (21-32) Anion Gap 10 (6-14) Blood Urea Nitrogen 6 mg/dL (7-20) Creatinine 0.7 mg/dL (0.6-1.0) Estimated GFR (Cockcroft-Gault) 121.5 BUN/Creatinine Ratio 9 (6-20) Glucose Level 83 mg/dL (70-99) Uric Acid 4.0 mg/dL (2.6-6.0) Calcium Level 9.1 mg/dL (8.5-10.1) Total Bilirubin 0.2 mg/dL (0.2-1.0) Aspartate Amino Transf (AST/SGOT) 17 U/L (15-37) Alanine Aminotransferase (ALT/SGPT) 19 U/L (14-59) Alkaline Phosphatase 110 U/L (46-116) Lactate Dehydrogenase 168 U/L (81-234) Total Protein 6.6 g/dL (6.4-8.2) Albumin 2.5 g/dL (3.4-5.0) Albumin/Globulin Ratio 0.6 (1.0-1.7) Treponema pallidum Antibody Nonreactive (Nonreactive) Segmented Neutrophils % 82 % (35-66) Band Neutrophils % 3 % (0-9) Lymphocytes % 9 % (24-48) Monocytes % 5 % (0-10) Eosinophils % 1 % (0-5) Platelet Estimate Adequate (ADEQUATE) Laboratory Tests Test 08/26/18 13:00 08/26/18 13:10 08/27/18 04:40 Urine Collection Type Unknown Urine Color Yellow Urine Clarity Clear Urine pH 7.0 Urine Specific [place] <=1.005 Urine Protein Negative mg/dL (NEG-TRACE) Urine Glucose (UA) Negative mg/dL (NEG) Urine Ketones (Stick) Negative mg/dL (NEG) Urine Blood Trace (NEG) Urine Nitrite Negative (NEG) Urine Bilirubin Negative (NEG) Urine Urobilinogen Dipstick 0.2 mg/dL (0.2 mg/dL) Urine Leukocyte Esterase Negative (NEG) Urine RBC 0 /HPF (0-2) Urine WBC Occ /HPF (0-4) Urine Squamous Epithelial Cells Few /LPF Urine Bacteria 0 /HPF (0-FEW) Urine Random Creatinine 16.7 mg/dL (Not Establ.) Urine Random Total Protein < 6.0 mg/dL (Not Establ.) Urine Protein/Creatinine Ratio mg/g (0-200) Urine Opiates Screen Neg (NEG) Urine Methadone Screen Neg (NEG) Urine Barbiturates Neg (NEG) Urine Phencyclidine Screen Neg (NEG) Urine Amphetamine/Methamphetamine Neg (NEG) Urine Benzodiazepines Screen Neg (NEG) Urine Cocaine Screen Neg (NEG) Urine Cannabinoids Screen Neg (NEG) Urine Ethyl Alcohol Neg (NEG) White Blood Count 12.6 x10^3/uL (4.0-11.0) 19.0 x10^3/uL (4.0-11.0) Red Blood Count 4.39 x10^6/uL (3.50-5.40) 3.54 x10^6/uL (3.50-5.40) Hemoglobin 11.6 g/dL (12.0-15.5) 9.6 g/dL (12.0-15.5) Hematocrit 35.4 % (36.0-47.0) 28.5 % (36.0-47.0) Mean Corpuscular Volume 81 fL (79-100) 80 fL (79-100) Mean Corpuscular Hemoglobin 26 pg (25-35) 27 pg (25-35) Mean Corpuscular Hemoglobin Concent 33 g/dL (31-37) 34 g/dL (31-37) Red Cell Distribution Width 15.8 % (11.5-14.5) 15.7 % (11.5-14.5) Platelet Count 278 x10^3/uL (140-400) 259 x10^3/uL (140-400) Neutrophils (%) (Auto) 78 % (31-73) 88 % (31-73) Lymphocytes (%) (Auto) 15 % (24-48) 7 % (24-48) Monocytes (%) (Auto) 7 % (0-9) 5 % (0-9) Eosinophils (%) (Auto) 1 % (0-3) 0 % (0-3) Basophils (%) (Auto) 0 % (0-3) 0 % (0-3) Neutrophils # (Auto) 9.8 x10^3uL (1.8-7.7) 16.6 x10^3uL (1.8-7.7) Lymphocytes # (Auto) 1.8 x10^3/uL (1.0-4.8) 1.3 x10^3/uL (1.0-4.8) Monocytes # (Auto) 0.9 x10^3/uL (0.0-1.1) 1.0 x10^3/uL (0.0-1.1) Eosinophils # (Auto) 0.1 x10^3/uL (0.0-0.7) 0.0 x10^3/uL (0.0-0.7) Basophils # (Auto) 0.0 x10^3/uL (0.0-0.2) 0.0 x10^3/uL (0.0-0.2) Sodium Level 139 mmol/L (136-145) Potassium Level 3.7 mmol/L (3.5-5.1) Chloride Level 102 mmol/L (98-107) Carbon Dioxide Level 27 mmol/L (21-32) Anion Gap 10 (6-14) Blood Urea Nitrogen 6 mg/dL (7-20) Creatinine 0.7 mg/dL (0.6-1.0) Estimated GFR (Cockcroft-Gault) 121.5 BUN/Creatinine Ratio 9 (6-20) Glucose Level 83 mg/dL (70-99) Uric Acid 4.0 mg/dL (2.6-6.0) Calcium Level 9.1 mg/dL (8.5-10.1) Total Bilirubin 0.2 mg/dL (0.2-1.0) Aspartate Amino Transf (AST/SGOT) 17 U/L (15-37) Alanine Aminotransferase (ALT/SGPT) 19 U/L (14-59) Alkaline Phosphatase 110 U/L (46-116) Lactate Dehydrogenase 168 U/L (81-234) Total Protein 6.6 g/dL (6.4-8.2) Albumin 2.5 g/dL (3.4-5.0) Albumin/Globulin Ratio 0.6 (1.0-1.7) Treponema pallidum Antibody Nonreactive (Nonreactive) Segmented Neutrophils % 82 % (35-66) Band Neutrophils % 3 % (0-9) Lymphocytes % 9 % (24-48) Monocytes % 5 % (0-10) Eosinophils % 1 % (0-5) Platelet Estimate Adequate (ADEQUATE) Medications Current Medications Sodium Chloride (Normal Saline Flush) 3 ml QSHIFT PRN IV AFTER MEDS AND BLOOD DRAWS; Start 08/26/18 at 13:00 Ringer's Solution 1,000 ml @ 125 mls/hr Q8H IV Last administered on 08/26/18at 20:02; Start 08/26/18 at 12:54 Citric Acid/ Sodium Citrate (Bicitra) 30 ml 1X PRN PRN PO DYSPEPSIA Last administered on 08/26/18at 13:49; Start 08/26/18 at 13:00; Stop 08/27/18 at 12:59 Terbutaline Sulfate (Brethine) 0.25 mg 1X PRN PRN SQ SEE COMMENTS; Start 08/26/18 at 13:00; Stop 08/27/18 at 12:59 Oxytocin/Sodium Chloride 500 ml @ 0 mls/hr CONT PRN PRN IV Post delivery bleeding; Start 08/26/18 at 13:00 Labetalol HCl (Normodyne Iv Push) 20 mg PRN Q2HR PRN IVP HYPERTENSION, SEE COMMENTS; Start 08/26/18 at 13:00 Terbutaline Sulfate (Brethine) 0.25 mg 1X ONCE SQ Last administered on 08/26/18at 13:45; Start 08/26/18 at 13:45; Stop 08/26/18 at 13:46; Status DC Betamethasone Sodium Phosphate (Celestone Soluspan) 12 mg 1X ONCE IM Last administered on 08/26/18at 13:48; Start 08/26/18 at 13:45; Stop 08/26/18 at 13:46; Status DC Famotidine (Pepcid Vial) 20 mg STK-MED ONCE .ROUTE ; Start 08/26/18 at 13:40; Stop 08/26/18 at 13:41; Status DC Metoclopramide HCl (Reglan Vial) 10 mg STK-MED ONCE .ROUTE ; Start 08/26/18 at 13:40; Stop 08/26/18 at 13:41; Status DC Ondansetron HCl (Zofran) 4 mg STK-MED ONCE .ROUTE ; Start 08/26/18 at 13:40; Stop 08/26/18 at 13:41; Status DC Phenylephrine HCl (PHENYLEPHRINE in 0.9% NACL PF) 1 mg STK-MED ONCE IV ; Start 08/26/18 at 13:40; Stop 08/26/18 at 13:41; Status DC Oxytocin (Pitocin) 10 unit STK-MED ONCE .ROUTE ; Start 08/26/18 at 13:40; Stop 08/26/18 at 13:41; Status DC Ephedrine Sulfate (ePHEDrine PF IN SALINE SYRINGE) 50 mg STK-MED ONCE IV ; Start 08/26/18 at 13:40; Stop 08/26/18 at 13:41; Status DC Morphine Sulfate (Morphine Preservative Free) 5 mg STK-MED ONCE .ROUTE ; Start 08/26/18 at 13:41; Stop 08/26/18 at 13:42; Status DC Fentanyl Citrate (Fentanyl 2ml Vial) 100 mcg STK-MED ONCE .ROUTE ; Start 08/26/18 at 13:41; Stop 08/26/18 at 13:42; Status DC Dexamethasone Sodium Phosphate (Decadron) 4 mg STK-MED ONCE .ROUTE ; Start 08/26/18 at 13:41; Stop 08/26/18 at 13:42; Status DC Cefazolin Sodium 3 gm/Dextrose 100 ml @ 200 mls/hr 1X PREOP PRN IV PRIOR TO PROCEDURE; Start 08/26/18 at 14:00; Stop 08/27/18 at 13:59 Misoprostol (Cytotec 200mcg Tab) 200 mcg STK-MED ONCE .ROUTE ; Start 08/26/18 at 14:00; Stop 08/26/18 at 14:01; Status DC Chloroprocaine HCl (Nesacaine 3% Mpf) 20 ml STK-MED ONCE .ROUTE ; Start 08/26/18 at 14:30; Stop 08/26/18 at 14:31; Status DC Lidocaine HCl (Lidocaine Pf 2% Vial) 5 ml STK-MED ONCE .ROUTE ; Start 08/26/18 at 15:03; Stop 08/26/18 at 15:04; Status DC Sodium Chloride (Normal Saline Flush) 3 ml QSHIFT PRN IV AFTER MEDS AND BLOOD DRAWS; Start 08/26/18 at 16:00 Oxytocin/Sodium Chloride 500 ml @ 125 mls/hr CONT PRN IV EXCESSIVE POST- BLEEDING; Start 08/26/18 at 16:00; Stop 08/26/18 at 23:59; Status DC Ibuprofen (Motrin) 800 mg PRN Q4HRS PRN PO INFLAMMATION; Start 08/26/18 at 16:00 Ondansetron HCl (Zofran) 4 mg PRN Q6HRS PRN IV NAUSEA/VOMITING; Start 08/26/18 at 16:00 Docusate Sodium (Colace) 100 mg PRN BID PRN PO CONSTIPATION; Start 08/26/18 at 16:00 Al Hydroxide/Mg Hydroxide (Mylanta Plus Xs) 30 ml PRN Q4HRS PRN PO HEARTBURN / GAS; Start 08/26/18 at 16:00 Simethicone (Gas-X) 80 mg PRN AFTMEALHC PRN PO GAS / BLOATING; Start 08/26/18 at 16:00 Diphenhydramine HCl (Benadryl Oral Elixir) 12.5 mg PRN Q6HRS PRN PO ITCHING Last administered on 08/26/18at 23:14; Start 08/26/18 at 16:00 Ferrous Sulfate (Feosol) 325 mg BIDWMEALS PO ; Start 08/26/18 at 17:00 Zolpidem Tartrate (Ambien) 5 mg PRN QHS PRN PO INSOMNIA, MAY REPEAT X1; Start 08/26/18 at 16:00 Oxycodone/ Acetaminophen (Percocet 5/325) 2 tab PRN Q4HRS PRN PO MODERATE PAIN, SEVERE PAIN Last administered on 08/27/18at 06:21; Start 08/26/18 at 16:00 Ketorolac Tromethamine (Toradol 30mg Vial) 30 mg PRN Q6HRS PRN IV PAIN Last administered on 08/27/18at 06:20; Start 08/26/18 at 16:00; Stop 08/31/18 at 15:59 Diphenhydramine HCl (Benadryl) 25 mg PRN Q6HRS PRN IVP ITCHING Last administered on 08/26/18at 18:46; Start 08/26/18 at 18:45 Active Scripts Active Cephalexin 500 Mg Tablet 1 Tab PO BID Abreva (Docosanol) 2 Gm Cream..g. 2 Gm TP Q2HR W/A Penicillin V Potassium 250 Mg/5 Ml Soln.recon 10 Ml PO TID Augmentin 875-125 Tablet (Amoxicillin/Potassium Clav) 1 Each Tablet 1 Tab PO BID Percocet 5-325 Mg Tablet (Oxycodone/Acetaminophen) 1 Each Tablet 1 Tab PO PRN Q6HRS PRN Ibuprofen 800 Mg Tablet 800 Mg PO PRN Q6HRS PRN Exam Abd: soft, mild tenderness, fundus firm Prevena in place. Assessment POD#1 s/p repeat c/s Plan of Care: Continue current Tx, Mgmt GRETEL MCKINNEY Jr, MD August 27, 2018 08:26
[2018-08-27] MEDS: SIMETHICONE 80 MG TAB.CHEW PO PRN ×3 (09:31→22:57)
[2018-08-27] MEDS: FERROUS SULFATE 325 MG TABLET. PO SCH ×3 (09:31→17:00)
[2018-08-27] MEDS: DOCUSATE SODIUM 100 MG CAPSULE. PO PRN ×2 (09:31→15:45)
[2018-08-27 12:38] VITALS: BP 116/70
[2018-08-27] MEDS: IBUPROFEN 400 MG TABLET. PO PRN ×2 (15:44→22:57)
[2018-08-27 18:16] VITALS: BP 144/78
[2018-08-27 23:45] VITALS: BP 126/43
[2018-08-28] MEDS: IV RINGERS,LACTATED 1000ML 1,000 ML IV SCH (04:54)
[2018-08-28 05:29] VITALS: BP 159/81
[2018-08-28] MEDS: oxyCODONE/APAP 5/325 1 TAB TABLET PO PRN ×3 (07:56→23:22)
[2018-08-28] MEDS: DOCUSATE SODIUM 100 MG CAPSULE. PO PRN ×2 (10:11→23:16)
[2018-08-28] MEDS: FERROUS SULFATE 325 MG TABLET. PO SCH (10:11)
[2018-08-28 13:15] VITALS: BP 134/76
[2018-08-28] MEDS: IBUPROFEN 400 MG TABLET. PO PRN ×2 (13:21→23:23)
[2018-08-28] MEDS: ONDANSETRON ODT 4 MG TAB.RAPDIS. PO PRN ×2 (14:24→23:22)
--- NOTE | 2018-08-28 16:06 | PDOC ---
OB Progress Note Date of Service 08/28/18 Time of Evaluation 1605 Notes PT. feeling well. Pain controlled. Pt. ambulating and bottle feeding. Lab Laboratory Tests Test 08/27/18 04:40 White Blood Count 19.0 x10^3/uL (4.0-11.0) Red Blood Count 3.54 x10^6/uL (3.50-5.40) Hemoglobin 9.6 g/dL (12.0-15.5) Hematocrit 28.5 % (36.0-47.0) Mean Corpuscular Volume 80 fL (79-100) Mean Corpuscular Hemoglobin 27 pg (25-35) Mean Corpuscular Hemoglobin Concent 34 g/dL (31-37) Red Cell Distribution Width 15.7 % (11.5-14.5) Platelet Count 259 x10^3/uL (140-400) Neutrophils (%) (Auto) 88 % (31-73) Lymphocytes (%) (Auto) 7 % (24-48) Monocytes (%) (Auto) 5 % (0-9) Eosinophils (%) (Auto) 0 % (0-3) Basophils (%) (Auto) 0 % (0-3) Neutrophils # (Auto) 16.6 x10^3uL (1.8-7.7) Lymphocytes # (Auto) 1.3 x10^3/uL (1.0-4.8) Monocytes # (Auto) 1.0 x10^3/uL (0.0-1.1) Eosinophils # (Auto) 0.0 x10^3/uL (0.0-0.7) Basophils # (Auto) 0.0 x10^3/uL (0.0-0.2) Segmented Neutrophils % 82 % (35-66) Band Neutrophils % 3 % (0-9) Lymphocytes % 9 % (24-48) Monocytes % 5 % (0-10) Eosinophils % 1 % (0-5) Platelet Estimate Adequate (ADEQUATE) Medications Current Medications Sodium Chloride (Normal Saline Flush) 3 ml QSHIFT PRN IV AFTER MEDS AND BLOOD DRAWS; Start 08/26/18 at 13:00; Stop 08/27/18 at 11:22; Status DC Ringer's Solution 1,000 ml @ 125 mls/hr Q8H IV Last administered on 08/26/18at 20:02; Start 08/26/18 at 12:54; Stop 08/28/18 at 10:58; Status DC Citric Acid/ Sodium Citrate (Bicitra) 30 ml 1X PRN PRN PO DYSPEPSIA Last administered on 08/26/18at 13:49; Start 08/26/18 at 13:00; Stop 08/27/18 at 12:59; Status DC Terbutaline Sulfate (Brethine) 0.25 mg 1X PRN PRN SQ SEE COMMENTS; Start 08/26/18 at 13:00; Stop 08/27/18 at 12:59; Status DC Oxytocin/Sodium Chloride 500 ml @ 0 mls/hr CONT PRN PRN IV Post delivery bleeding; Start 08/26/18 at 13:00 Labetalol HCl (Normodyne Iv Push) 20 mg PRN Q2HR PRN IVP HYPERTENSION, SEE COMMENTS; Start 08/26/18 at 13:00 Terbutaline Sulfate (Brethine) 0.25 mg 1X ONCE SQ Last administered on 08/26/18at 13:45; Start 08/26/18 at 13:45; Stop 08/26/18 at 13:46; Status DC Betamethasone Sodium Phosphate (Celestone Soluspan) 12 mg 1X ONCE IM Last administered on 08/26/18at 13:48; Start 08/26/18 at 13:45; Stop 08/26/18 at 13:46; Status DC Famotidine (Pepcid Vial) 20 mg STK-MED ONCE .ROUTE ; Start 08/26/18 at 13:40; Stop 08/26/18 at 13:41; Status DC Metoclopramide HCl (Reglan Vial) 10 mg STK-MED ONCE .ROUTE ; Start 08/26/18 at 13:40; Stop 08/26/18 at 13:41; Status DC Ondansetron HCl (Zofran) 4 mg STK-MED ONCE .ROUTE ; Start 08/26/18 at 13:40; Stop 08/26/18 at 13:41; Status DC Phenylephrine HCl (PHENYLEPHRINE in 0.9% NACL PF) 1 mg STK-MED ONCE IV ; Start 08/26/18 at 13:40; Stop 08/26/18 at 13:41; Status DC Oxytocin (Pitocin) 10 unit STK-MED ONCE .ROUTE ; Start 08/26/18 at 13:40; Stop 08/26/18 at 13:41; Status DC Ephedrine Sulfate (ePHEDrine PF IN SALINE SYRINGE) 50 mg STK-MED ONCE IV ; Start 08/26/18 at 13:40; Stop 08/26/18 at 13:41; Status DC Morphine Sulfate (Morphine Preservative Free) 5 mg STK-MED ONCE .ROUTE ; Start 08/26/18 at 13:41; Stop 08/26/18 at 13:42; Status DC Fentanyl Citrate (Fentanyl 2ml Vial) 100 mcg STK-MED ONCE .ROUTE ; Start 08/26/18 at 13:41; Stop 08/26/18 at 13:42; Status DC Dexamethasone Sodium Phosphate (Decadron) 4 mg STK-MED ONCE .ROUTE ; Start 08/26/18 at 13:41; Stop 08/26/18 at 13:42; Status DC Cefazolin Sodium 3 gm/Dextrose 100 ml @ 200 mls/hr 1X PREOP PRN IV PRIOR TO PROCEDURE; Start 08/26/18 at 14:00; Stop 08/27/18 at 13:59; Status DC Misoprostol (Cytotec 200mcg Tab) 200 mcg STK-MED ONCE .ROUTE ; Start 08/26/18 at 14:00; Stop 08/26/18 at 14:01; Status DC Chloroprocaine HCl (Nesacaine 3% Mpf) 20 ml STK-MED ONCE .ROUTE ; Start 08/26/18 at 14:30; Stop 08/26/18 at 14:31; Status DC Lidocaine HCl (Lidocaine Pf 2% Vial) 5 ml STK-MED ONCE .ROUTE ; Start 08/26/18 at 15:03; Stop 08/26/18 at 15:04; Status DC Sodium Chloride (Normal Saline Flush) 3 ml QSHIFT PRN IV AFTER MEDS AND BLOOD DRAWS; Start 08/26/18 at 16:00 Oxytocin/Sodium Chloride 500 ml @ 125 mls/hr CONT PRN IV EXCESSIVE POST- BLEEDING; Start 08/26/18 at 16:00; Stop 08/26/18 at 23:59; Status DC Ibuprofen (Motrin) 800 mg PRN Q4HRS PRN PO INFLAMMATION Last administered on 08/28/18at 13:21; Start 08/26/18 at 16:00 Ondansetron HCl (Zofran) 4 mg PRN Q6HRS PRN IV NAUSEA/VOMITING; Start 08/26/18 at 16:00 Docusate Sodium (Colace) 100 mg PRN BID PRN PO CONSTIPATION Last administered on 08/28/18at 10:11; Start 08/26/18 at 16:00 Al Hydroxide/Mg Hydroxide (Mylanta Plus Xs) 30 ml PRN Q4HRS PRN PO HEARTBURN / GAS; Start 08/26/18 at 16:00 Simethicone (Gas-X) 80 mg PRN AFTMEALHC PRN PO GAS / BLOATING Last administered on 08/27/18at 22:57; Start 08/26/18 at 16:00 Diphenhydramine HCl (Benadryl Oral Elixir) 12.5 mg PRN Q6HRS PRN PO ITCHING Last administered on 08/26/18at 23:14; Start 08/26/18 at 16:00 Ferrous Sulfate (Feosol) 325 mg BIDWMEALS PO Last administered on 08/28/18at 10:11; Start 08/26/18 at 17:00 Zolpidem Tartrate (Ambien) 5 mg PRN QHS PRN PO INSOMNIA, MAY REPEAT X1; Start 08/26/18 at 16:00 Oxycodone/ Acetaminophen (Percocet 5/325) 2 tab PRN Q4HRS PRN PO MODERATE PAIN, SEVERE PAIN Last administered on 08/28/18at 13:21; Start 08/26/18 at 16:00 Ketorolac Tromethamine (Toradol 30mg Vial) 30 mg PRN Q6HRS PRN IV PAIN Last administered on 08/27/18at 06:20; Start 08/26/18 at 16:00; Stop 08/31/18 at 15:59 Diphenhydramine HCl (Benadryl) 25 mg PRN Q6HRS PRN IVP ITCHING Last administered on 08/26/18at 18:46; Start 08/26/18 at 18:45 Misoprostol (Cytotec 200mcg Tab) 800 mcg STK-MED ONCE .ROUTE ; Start 08/26/18 at 14:00; Stop 08/27/18 at 12:17; Status DC Ondansetron HCl (Zofran Odt) 4 mg PRN Q6HRS PRN PO NAUSEA/VOMITING Last administered on 08/28/18at 14:24; Start 08/28/18 at 14:15 Active Scripts Active Cephalexin 500 Mg Tablet 1 Tab PO BID Abreva (Docosanol) 2 Gm Cream..g. 2 Gm TP Q2HR W/A Penicillin V Potassium 250 Mg/5 Ml Soln.recon 10 Ml PO TID Augmentin 875-125 Tablet (Amoxicillin/Potassium Clav) 1 Each Tablet 1 Tab PO BID Percocet 5-325 Mg Tablet (Oxycodone/Acetaminophen) 1 Each Tablet 1 Tab PO PRN Q6HRS PRN Ibuprofen 800 Mg Tablet 800 Mg PO PRN Q6HRS PRN Exam Abd: soft, mild tenderness, fundus firm Prevena in place Assessment POD#2 s/p repeat c/s Plan of Care: Continue current Tx, Mgmt GRETEL MCKINNEY Jr, MD August 28, 2018 16:06
[2018-08-28 19:40] VITALS: BP 151/89
[2018-08-29 06:00] VITALS: BP 140/88
--- NOTE | 2018-08-29 13:53 | PDOC3 ---
OB DISCHARGE SUMMARY DATE OF ADMISSION: 08/26/18 DATE OF DISCHARGE: 08/29/18 REASON FOR ADMISSION: Onset of labor INTRAPARTUM PROCEDURES: : Low Cerv Trans DISCHARGE DIAGNOSIS: Others (PTL ) DISCHARGE INFORMATION: Activity (ad robyn), Diet (regular), Instructions (pelvic rest x 6 wks, no driving x 2 weeks, no lifting > 20 lbs. x 4 wks) HOSPITAL COURSE PTL delivered via repeat c/s without complications. GRETEL MCKINNEY Jr, MD August 29, 2018 13:53
[2018-08-29] MEDS ORDERED: DOCU-109 PO (13:55)
[2018-08-29] MEDS ORDERED: IBUP-1060 PO (13:55)
[2018-08-29] MEDS ORDERED: OXYC1TAB15 PO (13:55)
--- NOTE | 2018-08-29 13:55 | DISCH ---
DISCHARGE INSTRUCTIONS Condition on Discharge Condition on Discharge: Stable Activity After Discharge Activity Instructions for Disc: Activity as tolerated Lifting Instructions after Dis: No heavy lifting, No pulling or pushing, Do not lift >10 pounds Driving Instructions after Dis: No driving for 2 weeks Weight Bearing Status after Di: No restrictions, As tolerated Diet after Discharge Diet after Discharge: Regular Diet Texture: Regular Contacting the [facility]ridger after DC Call your doctor for: Concerns you may have Follow-Up Follow up with: Dr. James in 2 weeks. Treatment/Equipment after DC Adaptive Equipment Issued: None GRETEL JAMES Jr, MD August 29, 2018 13:55
[2018-08-29 15:10] VITALS: BP 126/78
--- NOTE | 2018-08-31 09:08 | PATHOLOGY ---
[facility] Accession Number: [id number] . 01 Material submitted: . placenta - PLACENTA AND CORD . 01 Clinical history: . Obese, HTN, 34.5 weeks repeat EDC: 10/02/2018 Apgars 8, 7, 9 P:3 T:2 PT:1 SAB:1 L:3 . 02 Diagnosis: 448 gram late pre-term placenta of an estimated 34-35 weeks gestation with attached membranes and segment of umbilical cord and separate detached segment of umbilical cord: - No diagnostic abnormalities. (ANAND:izzy; 08/30/2018) MBR/08/30/2018 . 02 Comment: There is no evidence of an acute chorioamnionitis or villitis. There are no infarcts. There is no evidence of thrombotic vasculopathy. (ANAND:izzy; 08/30/2018) . 02 Electronically signed: . Miller Kuaffman MD, Pathologist NPI- [id number] . 01 Gross description: . The specimen is received in formalin labeled "João, Tyiesha, placenta" and consists of an oval grewal placenta measuring 16.8 x 14.9 x 3.0 cm and weighing 448 g after removal of membranes and umbilical cord. The membranes are pink-oliveira, thickened, and opaque. The surface is blue-moore, well vascularized with multiple fibrin deposits measuring between 0.4 cm and 2.0 cm (5-10% of the surface) and an eccentrically inserted 3 vessel umbilical cord, 3.3 cm from edge. The cord measures 7.9 cm in length and 1.1 cm in diameter. Additionally received is a clamped segment of umbilical cord measuring 21.2 cm in length and 1.5 cm in diameter. Both segments of cord are white-oliveira with moderate twists. The maternal surface shows complete and intact cotyledons with a small amount of adherent blood clot (5-10 mL). Sectioning reveals a maroon-red and spongy parenchyma with a possible oliveira lesion measuring 0.6 x 0.5 cm. Chemical Process Operator sections are submitted as follows: . A1: Periphery and membrane roll A2: Umbilical cord A3: Possible lesion A4: Full-thickness section (SDY; 08/27/2018) SYU/SYU . 02 Pathologist provided ICD-10: O82, Z37.0, Z3A.34 . 02 CPT . 729132 Specimen Comment: A courtesy copy of this report has been sent to Specimen Comment: [phone], . Specimen Comment: Report sent to / DR JEONG Performed at: 01 [facility] [address], [place] [id number] MD Sen Mccoy MD Phone: [phone] Performed at: 02 [facility] [address] [place], [place] [id number] MD Miller Kauffman MD Phone: [phone]
== END 2018-08-29 15:30 | disposition home or self-care (01) | DRG 787 ==
LOC: 3 SO LND 11:58 → OBSVTOIN 11:58 → 3 NORTH 17:55
PROVIDERS: ADMIT Specialist; ATTEND Specialist
PROC: 10D00Z1 Extraction of Products of Conception, Low, Open Approach (ICD-10-PCS; principal; 2018-08-26)
DX: O60.14X0 Preterm labor third trimester with preterm delivery third trimester, not applicable or unspecified (principal); R71.0 Precipitous drop in hematocrit; O34.211 Maternal care for low transverse scar from previous cesarean delivery; Z3A.34 34 weeks gestation of pregnancy; Z37.0 Single live birth
CPT/HCPCS: 36415; 80053; 80307; 81001; 82570; 83615; 84156; 84550; 85007; 85025; 86592; 86850; 86900; 86901; 88307; J0171; J0702; J1100; J1200; J1885; J2001; J2270; J2370; J2405; J2590; J2765; J3010; J3105; J3490; J7030; J7120; Q0162

== ENCOUNTER 2018-10-13 13:00 | Emergency (ER) | payer OTHER ==
[~2018-10-13] VITALS: Ht 170.2 cm; Wt 140.6 kg
[2018-10-13 13:00] VITALS: BP 176/105
--- NOTE | 2018-10-13 13:26 | PHYS DOC ---
Past Medical History Past Medical History: Hypertension, Other Additional Past Medical Histor: GESTATIONAL DM Past Surgical History: Cholecystectomy, Additional Past Surgical Histo: I AND D Alcohol Use: Occasionally Drug Use: None Adult General Chief Complaint Chief Complaint: SORE THROAT HPI HPI 28-year-old female presents to ER for complaints of sore swollen throat. Patient states yesterday pain started and today she woke up having difficulty swallowing. She has been unable to take any ggnm-gvm-mldjrxl medications due to this issue. Patient denies fever, cough, urinary symptoms, or earache. Patient states she is 6 weeks no concerns of . Review of Systems Review of Systems Constitutional: Denies fever or chills [] Eyes: Denies change in visual acuity, redness, or eye pain [] HENT: Denies nasal congestion. Reports sore/swollen throat Respiratory: Denies cough or shortness of breath [] Cardiovascular: No additional information not addressed in HPI [] GI: Denies abdominal pain, nausea, vomiting, bloody stools or diarrhea [] : Denies dysuria or hematuria [] Musculoskeletal: Denies back pain or joint pain [] Integument: Denies rash or skin lesions [] Neurologic: Denies headache, focal weakness or sensory changes [] All other systems were reviewed and found to be within normal limits, except as documented in this note. Current Medications Current Medications Current Medications Medications (Trade) Dose Ordered Sig/Stephany Start Time Stop Time Status Last Admin Dose Admin Dexamethasone Sodium Phosphate (Decadron) 10 mg 1X ONCE 10/13/18 13:30 10/13/18 13:31 DC 10/13/18 13:36 10 MG Ibuprofen (Motrin) 600 mg 1X ONCE 10/13/18 14:30 10/13/18 14:31 DC 10/13/18 14:36 600 MG Penicillin G Benzathine (Bicillin L-A) 1,200,000 unit 1X ONCE 10/13/18 14:30 10/13/18 14:31 DC 10/13/18 14:37 1,200,000 UNIT Allergies Allergies Allergies Coded Allergies Type Severity Reaction Last Updated Verified No Known Drug Allergies 02/11/17 No Physical Exam Physical Exam Constitutional: Well developed, well nourished, no acute distress, non-toxic appearance. [] HENT: Normocephalic, atraumatic, bilateral external ears normal, oropharynx moist, no oral exudates, nose normal. [] Eyes: PERRLA, EOMI, conjunctiva normal, no discharge. [] Neck: Normal range of motion, no tenderness, supple, no stridor. [] Cardiovascular:Heart rate regular rhythm, no murmur [] Lungs & Thorax: Bilateral breath sounds clear to auscultation [] Abdomen: Bowel sounds normal, soft, no tenderness, no masses, no pulsatile masses. [] Skin: Warm, dry, no erythema, no rash. [] Back: No tenderness, no CVA tenderness. [] Extremities: No tenderness, no cyanosis, no clubbing, ROM intact, no edema. [] Neurologic: Alert and oriented X 3, normal motor function, normal sensory function, no focal deficits noted. [] Psychologic: Affect normal, judgement normal, mood normal. [] Current Patient Data Vital Signs Vital Signs Date Time Temp Pulse Resp B/P (MAP) Pulse Ox O2 Delivery O2 Flow Rate FiO2 10/13/18 13:00 98.6 86 20 176/105 (128) 97 Room Air 98.6 EKG EKG [] Radiology/Procedures Radiology/Procedures [] Course & Med Decision Making Course & Med Decision Making [] Dragon Disclaimer Dragon Disclaimer This electronic medical record was generated, in whole or in part, using a voice recognition dictation system. Departure Departure Impression: Primary Impression: Strep throat Disposition: 01 HOME, SELF-CARE Condition: STABLE Referrals: NO PCP (PCP) Patient Instructions: Strep Throat Additional Instructions: Increase water intake daily. Tylenol and/or ibuprofen as needed for pain as directed on container. If symptoms worsen return to the emergency department if unable to get in to y our primary care physician for reevaluation and further care. Scripts Prednisone (PREDNISONE) 50 Mg Tablet 1 TAB PO DAILY, #4 TAB 0 Refills Start 10/14/18 Prov: TORRES JARVIS APRN 10/13/18 TORRES JARVIS APRN Oct 13, 2018 13:26
[2018-10-13] MEDS ORDERED: DEXAMETHASONE SOD PHOS 20 MG/5 ML VIAL. PO ONE (13:30)
[2018-10-13] MEDS ORDERED: PENICILLIN G BENZATHINE LA 1,200,000 UNIT/2 ML DISP.SYRIN. IM ONE (14:30)
[2018-10-13] MEDS ORDERED: IBUPROFEN 200 MG TABLET. PO ONE (14:30)
[2018-10-13] MEDS ORDERED: PRED50TA PO (15:26)
== END 2018-10-13 15:46 | disposition home or self-care (01) ==
LOC: ER 13:00
DX: J02.0 Streptococcal pharyngitis (principal); B95.5 Unspecified streptococcus as the cause of diseases classified elsewhere; I10 Essential (primary) hypertension
CPT/HCPCS: 96372; 99283; J0561; J1100

== ENCOUNTER 2019-02-19 13:11 | Emergency (ER) | payer MEDICAID, OTHER ==
[~2019-02-19] VITALS: Ht 170.2 cm; Wt 136.1 kg
[~2019-02-19 13:11] MED LIST changes: +PRED50TA PO
[2019-02-19 13:30] VITALS: BP 205/131
[2019-02-19] MEDS ORDERED: AZIT250T6 PO (13:48)
[2019-02-19] MEDS ORDERED: BENZ100C PO (13:48)
--- NOTE | 2019-02-19 13:48 | PHYS DOC ---
Past Medical History Past Medical History: Hypertension, Other Additional Past Medical Histor: GESTATIONAL DM (BEBA GREEN APRN) Past Surgical History: Cholecystectomy, Additional Past Surgical Histo: I AND D (BEBA GREEN APRN) Alcohol Use: Occasionally Drug Use: None (BEBA GREEN APRN) Adult General Chief Complaint Chief Complaint: COUGH HPI HPI Patient is a 29 year old female who presents with cough, nasal congestion x 1.5 weeks. Denies any pain, chest pain, soa, vomiting, dysuria, dizziness, visual changes. (BEBA GREEN APRN) Review of Systems Review of Systems HENT: nasal congestion or sore throat [] Respiratory: cough or denies shortness of breath [] All other systems were reviewed and found to be within normal limits, except as documented in this note. (BEBA GREEN APRN) Allergies Allergies Allergies Coded Allergies Type Severity Reaction Last Updated Verified No Known Drug Allergies 02/11/17 No (CAROL KIRBY MD) Physical Exam Physical Exam Constitutional: Well developed, well nourished, no acute distress, non-toxic appearance. [] HENT: Normocephalic, atraumatic, bilateral external ears normal, oropharynx moist, no oral exudates, nose normal. Left ear tympanic reddened. [] Eyes: PERRLA, EOMI, conjunctiva normal, no discharge. [] Neck: Normal range of motion, no tenderness, supple, no stridor. [] Cardiovascular:Heart rate regular rhythm, no murmur [] Lungs & Thorax: Bilateral breath sounds clear to auscultation [] Skin: Warm, dry, no erythema, no rash. [] Neurologic: Alert and oriented X 3, normal motor function, normal sensory function, no focal deficits noted. [] Psychologic: Affect normal, judgement normal, mood normal. [] (BEBA GREEN APRN) Current Patient Data Vital Signs Vital Signs Date Time Temp Pulse Resp B/P (MAP) Pulse Ox O2 Delivery O2 Flow Rate FiO2 02/19/19 13:30 98.9 106 16 205/131 (155) 97 Room Air 98.9 (CAROL KIRBY MD) EKG EKG [] (BEBA GREEN APRN) Radiology/Procedures Radiology/Procedures [] (BEBA GREEN APRN) Course & Med Decision Making Course & Med Decision Making Left tympanic is reddened. Throat is pink without exudates or swelling. Lungs are clear to auscultation all lobes. Speaks in full clear sentences. Ambulatory with a steady gait. (BEBA GREEN APRN) Dragon Disclaimer Dragon Disclaimer This electronic medical record was generated, in whole or in part, using a voice recognition dictation system. (BEBA GREEN APRN) Departure Departure Impression: Primary Impression: Cough Additional Impressions: Nasal congestion Otitis media Disposition: HOME, SELF-CARE Condition: STABLE Referrals: NO PCP (PCP) Patient Instructions: Cough, Adult Additional Instructions: Follow up with primary care provider. Take medications as prescribed. Scripts Benzonatate (TESSALON PERLE) 100 Mg Capsule 1 CAP PO TID, #30 CAP Prov: BEBA GREEN APRN 02/19/19 Azithromycin (AZITHROMYCIN TABLET) 250 Mg Tablet 1 PKG PO UD for 5 Days, #6 TAB 0 Refills 2 the first day followed by 1 for days 2-5 Prov: BEBA GREEN APRN 02/19/19 Attending Signature I have participated in the care of this patient and I have reviewed and agree with all pertinent clinical information above including history, exam, and recommendations. (CAROL KIRBY MD) Problem Qualifiers Additional Impressions: Otitis media Otitis media type: unspecified Chronicity: acute Qualified Codes: H66.90 - Otitis media, unspecified, unspecified ear BEBA GREEN APRN Feb 19, 2019 13:48 CAROL KIRBY MD Feb 24, 2019 18:14
== END 2019-02-19 14:05 | disposition home or self-care (01) ==
LOC: ER 13:11
DX: H66.92 Otitis media, unspecified, left ear (principal); R05 Cough; R09.81 Nasal congestion; I10 Essential (primary) hypertension
CPT/HCPCS: 99283

== ENCOUNTER 2019-06-05 18:48 | Emergency (ER) | payer SELFPAY ==
[~2019-06-05] VITALS: Ht 170.2 cm; Wt 159.0 kg
[~2019-06-05 18:48] MED LIST changes: +AZIT250T6 PO; +BENZ100C PO
[2019-06-05 19:09] VITALS: BP 159/111
[2019-06-05] MEDS ORDERED: DEXAMETHASONE 4 MG TABLET PO ONE (20:00)
[2019-06-05] MEDS ORDERED: IOHEXOL 300 MG/ML 100ML VIAL. IV ONE (20:45)
[2019-06-05] MEDS ORDERED: CONTRAST GIVEN. MC PRN (21:00)
[2019-06-05 21:03] LABS: BASO # 0.1 x10^3/uL (0.0-0.2); BASO % 1 % (0-3); EOS # 0.1 x10^3/uL (0.0-0.7); EOS % 1 % (0-3); HEMATOCRIT 35.6 % (36.0-47.0); HEMOGLOBIN 11.5 g/dL (12.0-15.5); LYMPH # 1.9 x10^3/uL (1.0-4.8); LYMPH % 12 % (24-48); MEAN CORPUSCULAR HEMOGLOBIN 26 pg (25-35); MEAN CORPUSCULAR HGB CONC 32 g/dL (31-37); MEAN CORPUSCULAR VOLUME 82 fL (79-100); MONO # 1.7 x10^3/uL (0.0-1.1); MONO % 10 % (0-9); NEUT # 12.5 x10^3/uL (1.8-7.7); NEUT % 77 % (31-73); PLATELET COUNT 375 x10^3/uL (140-400); RED BLOOD COUNT 4.36 x10^6/uL (3.50-5.40); RED CELL DISTRIBUTION WIDTH 17.8 % (11.5-14.5); WHITE BLOOD COUNT 16.3 x10^3/uL (4.0-11.0)
[2019-06-05 21:11] LABS: CALCIUM 9.2 mg/dL (8.5-10.1); CREATININE 0.9 mg/dL (0.6-1.0); GFR 90.2
--- NOTE | 2019-06-05 22:22 | RAD ---
Exam: CT neck with contrast INDICATION: Throat TECHNIQUE: Sequential axial images through the neck obtained following the administration of 70 mL of Omni 300 IV contrast. Sagittal and coronal reformatted images were reconstructed from the axial data and reviewed. Comparisons: None FINDINGS: Visualized intracranial structures are unremarkable. Mild mucosal thickening is noted within the right maxillary sinus. Visualized cervical vasculature is patent. There is asymmetric fullness within the right oropharynx corresponding to the palatine tonsil. Mild enlargement of the left palatine tonsils also noted. Question subtle hypodense area centrally within the right palatine tonsil measuring approximately 1.9 x 1.0 cm. Remainder of the oropharynx, hypopharynx and larynx are patent. Thyroid and salivary glands are unremarkable. Numerous enlarged upper cervical lymph nodes are noted. No suspicious osseous lesions or acute fractures. IMPRESSION: Asymmetric fullness in the right palatine tonsil with a internal hypodense area favored represent a tonsillar abscess measuring approximately 1.9 x 1.0 cm. Exposure: One or more of the following in the visualized dose reduction techniques were utilized for this examination: 1. Automated exposure control 2. Adjustment of the MA and/or KV according to patient size 3. Use of iterative of reconstructive technique Electronically signed by: Gabriella Jay MD (06/05/2019 10:19 PM) [id number]
--- NOTE | 2019-06-05 22:31 | PHYS DOC ---
Past Medical History Past Medical History: Hypertension, Other Additional Past Medical Histor: GESTATIONAL DM (JOHANA MCQUEEN VAN OWNER OPERATOR) Past Surgical History: Cholecystectomy, Additional Past Surgical Histo: I AND D (JOHANA MCQUEEN VAN OWNER OPERATOR) Smoking Status: Current Every Day Smoker Alcohol Use: Occasionally Drug Use: None (JOHANA MCQUEEN APRN) Attending Signature I have participated in the care of this patient and I have reviewed and agree with all pertinent clinical information above including history, exam, and recommendations. (CAROL KIRBY MD) Adult General Chief Complaint Chief Complaint: SORE THROAT HPI HPI Patient is a 29 year old AA female who presents to the emergency department with complaints of a sore throat for the last 5 days. Patient states it started as a scratchy sensation. She now states that both sides of her neck are tender to touch and reports severe pain that is constant and increases with swallowing. She denies any cough, shortness of breath, stridor, wheezing, nausea, vomiting, diarrhea, abdominal pain, rash, headache, or fever. Patient states she has had some nasal congestion and bilateral ear pain. She currently rates her pain a 9 out of 10 on pain scale, she denies any alleviating factors. (JOHANA MCQUEEN APRN) Review of Systems Review of Systems All other ROS is negative unless otherwise noted in HPI. (JOHANA MCQUEEN APRN) Current Medications Current Medications Current Medications Medications (Trade) Dose Ordered Sig/Stephany Start Time Stop Time Status Last Admin Dose Admin Clindamycin Phosphate (Cleocin Im) 600 mg 1X ONCE 06/05/19 23:45 06/05/19 23:46 DC 06/05/19 23:45 600 MG Dexamethasone (Decadron) 10 mg 1X ONCE 06/05/19 20:00 06/05/19 20:01 DC 06/05/19 19:47 10 MG Info (CONTRAST GIVEN -- Rx MONITORING) 1 each PRN DAILY PRN 06/05/19 21:00 06/06/19 00:37 DC Iohexol (Omnipaque 300 Mg/ml) 70 ml 1X ONCE 06/05/19 20:45 06/05/19 20:47 DC 06/05/19 21:55 70 ML (CAROL KIRBY MD) Allergies Allergies Allergies Coded Allergies Type Severity Reaction Last Updated Verified No Known Drug Allergies 02/11/17 No (CAROL KIRBY MD) Physical Exam Physical Exam See Above Constitutional: Well developed, well nourished, no acute distress, ill appearance, obese HENT: Normocephalic, atraumatic, bilateral external ears normal, bilateral TMs normal, oropharynx moist, nose normal; 4+ edema of R tonsil with mild uvular deviation to the left, 2+ edema of L tonsil, no excudate Eyes: PERRLA, EOMI, conjunctiva normal, no discharge. [] Neck: Normal range of motion, no tenderness, supple, no stridor. [] Cardiovascular:Heart rate regular rhythm, no murmur [] Lungs & Thorax: Bilateral breath sounds clear to auscultation, Respirations even and unlabored, no retractions, no respiratory distress [] Skin: Warm, dry, no erythema, no rash. [] Back: No CVA tenderness. [] Extremities: No cyanosis, ROM intact Neurologic: Alert and oriented X 3, no focal deficits noted. [] Psychologic: Affect normal, judgement normal, mood normal. [] (JOHANA MCQUEEN APRN) Current Patient Data Vital Signs Vital Signs Date Time Temp Pulse Resp B/P (MAP) Pulse Ox O2 Delivery O2 Flow Rate FiO2 06/05/19 19:09 98.8 97 18 159/111 (127) 99 Room Air 98.8 (CAROL KIRBY MD) Lab Values Laboratory Tests Test 06/05/19 20:55 White Blood Count 16.3 x10^3/uL (4.0-11.0) H Red Blood Count 4.36 x10^6/uL (3.50-5.40) Hemoglobin 11.5 g/dL (12.0-15.5) L Hematocrit 35.6 % (36.0-47.0) L Mean Corpuscular Volume 82 fL (79-100) Mean Corpuscular Hemoglobin 26 pg (25-35) Mean Corpuscular Hemoglobin Concent 32 g/dL (31-37) Red Cell Distribution Width 17.8 % (11.5-14.5) H Platelet Count 375 x10^3/uL (140-400) Neutrophils (%) (Auto) 77 % (31-73) H Lymphocytes (%) (Auto) 12 % (24-48) L Monocytes (%) (Auto) 10 % (0-9) H Eosinophils (%) (Auto) 1 % (0-3) Basophils (%) (Auto) 1 % (0-3) Neutrophils # (Auto) 12.5 x10^3/uL (1.8-7.7) H Lymphocytes # (Auto) 1.9 x10^3/uL (1.0-4.8) Monocytes # (Auto) 1.7 x10^3/uL (0.0-1.1) H Eosinophils # (Auto) 0.1 x10^3/uL (0.0-0.7) Basophils # (Auto) 0.1 x10^3/uL (0.0-0.2) Sodium Level 136 mmol/L (136-145) Potassium Level 4.0 mmol/L (3.5-5.1) Chloride Level 99 mmol/L (98-107) Carbon Dioxide Level 27 mmol/L (21-32) Anion Gap 10 (6-14) Blood Urea Nitrogen 10 mg/dL (7-20) Creatinine 0.9 mg/dL (0.6-1.0) Estimated GFR (Cockcroft-Gault) 90.2 Glucose Level 100 mg/dL (70-99) H Calcium Level 9.2 mg/dL (8.5-10.1) Laboratory Tests 06/05/19 20:55 Laboratory Tests 06/05/19 20:55 (CAROL KIRBY MD) EKG EKG [] (JOHANA MCQUEEN APRN) Radiology/Procedures Radiology/Procedures PROCEDURE: CT SOFT TISSUE NECK W/CONTRAST Exam: CT neck with contrast INDICATION: Throat TECHNIQUE: Sequential axial images through the neck obtained following the administration of 70 mL of Omni 300 IV contrast. Sagittal and coronal reformatted images were reconstructed from the axial data and reviewed. Comparisons: None FINDINGS: Visualized intracranial structures are unremarkable. Mild mucosal thickening is noted within the right maxillary sinus. Visualized cervical vasculature is patent. There is asymmetric fullness within the right oropharynx corresponding to the palatine tonsil. Mild enlargement of the left palatine tonsils also noted. Question subtle hypodense area centrally within the right palatine tonsil measuring approximately 1.9 x 1.0 cm. Remainder of the oropharynx, hypopharynx and larynx are patent. Thyroid and salivary glands are unremarkable. Numerous enlarged upper cervical lymph nodes are noted. No suspicious osseous lesions or acute fractures. IMPRESSION: Asymmetric fullness in the right palatine tonsil with a internal hypodense area favored represent a tonsillar abscess measuring approximately 1.9 x 1.0 cm. [] (JOHANA MCQUEEN APRN) Course & Med Decision Making Course & Med Decision Making Pertinent Labs and Imaging studies reviewed. (See chart for details) 2-Spoke with Dr. Fernanda Phelps and advised of patient in the ER. Advised Dr. Phelps that patient was given 10 mg of PO decadron in the ER and findings of R tonsilar abscess on CT. Pt's VSS. Will give patient one dose of 600 mg of CLindamycin prior to discharge and send pt home with prescriptions for clindamycin and a medrol dose malachi. Will inform patient to go to her office at noon tomorrow for further evaluation and treatment. Patient d/c with mediations as noted above and instructed to follow up with Dr. Phelps as noted above. PT instructed to return to the ER if symptoms worsen, a fever develops, shortness of breath, or difficulty swallowing. PT verbalized an understanding of home care, medications, follow-up, and return to ED instructions and was in agreement with the plan of care. (JOHANA MCQUEEN APRN) Dragon Disclaimer Dragon Disclaimer This electronic medical record was generated, in whole or in part, using a voice recognition dictation system. (JOHANA MCQUEEN APRN) Departure Departure Impression: Primary Impression: Peritonsillar abscess Disposition: 01 HOME, SELF-CARE Condition: STABLE Referrals: NO PCP (PCP) FERNANDA PHELPS MD Patient Instructions: Peritonsillar Abscess, [id number] Additional Instructions: Fill the prescriptions and begin taking tomorrow morning. [facility] to [facility] located at [address] [facility] [address] [facility], [place], [place] at noon tomorrow. Dr. Phelps will treat you. Return to the ER if your symptoms worsen or you have difficulty swallowing or increased shortness of breath. Scripts Methylprednisolone (MEDROL) 4 Mg Tab.ds.pk 1 PKG PO UD for 6 Days, #1 PKG 0 Refills Prov: JOHANA MCQUEEN APRN 06/06/19 Clindamycin Hcl (CLINDAMYCIN HCL) 150 Mg Capsule 450 MG PO TID for 7 Days, #63 CAP 0 Refills Prov: JOHANA MCQUEEN APRN 06/06/19 JOHANA MCQUEEN APRN Jun 05, 2019 22:31 CAROL KIRBY MD Jun 06, 2019 05:28
[2019-06-05] MEDS: CLINDAMYCIN 600MG PREMIX 50 ML IV ONE ×2 (23:10→23:15)
[2019-06-05] MEDS ORDERED: CLINDAMYCIN IM 600 MG/4 ML VIAL. IM ONE (23:45)
[2019-06-06] MEDS ORDERED: CLIN150C14 PO
[2019-06-06] MEDS ORDERED: METH4TAB2 PO
== END 2019-06-06 00:32 | disposition home or self-care (01) ==
LOC: ER 18:48
DX: J36 Peritonsillar abscess (principal); R60.0 Localized edema; M54.2 Cervicalgia; H92.03 Otalgia, bilateral; R09.81 Nasal congestion; I10 Essential (primary) hypertension; F17.200 Nicotine dependence, unspecified, uncomplicated; Z90.49 Acquired absence of other specified parts of digestive tract; Z98.890 Other specified postprocedural states
CPT/HCPCS: 36415; 70491; 80048; 81025; 85025; 87070; 87880; 96372; 99285; J3490; J8540; Q9967

== ENCOUNTER 2020-10-16 08:31 | Emergency (ER) | payer MEDICAID ==
[~2020-10-16] VITALS: Ht 170.2 cm; Wt 140.9 kg
[~2020-10-16 08:31] MED LIST changes: +CLIN150C15 PO; -DOCO2CRE TP; +DOCO2CRE7 TP; +METH4TAB2 PO
[2020-10-16 08:42] VITALS: BP 179/107
[2020-10-16 09:26] LABS: BILIRUBIN,URINE NEGATIVE (NEG); CLARITY,URINE CLEAR; COLOR,URINE YELLOW; NITRITE,URINE NEGATIVE (NEG); PROTEIN,URINE NEGATIVE (NEG-TRACE); UROBILINOGEN,URINE 0.2 mg/dL (0.2 mg/dL)
[2020-10-16 09:52] LABS: BACTERIA,URINE 0 /HPF (0-FEW); RBC,URINE 0 /HPF (0-2)
[2020-10-16] MEDS ORDERED: KETOROLAC 60 MG/2 ML VIAL. IM ONE (10:00)
[2020-10-16] MEDS ORDERED: ORPHENADRINE CITRATE 60 MG/2 ML VIAL. IM ONE (10:00)
--- NOTE | 2020-10-16 10:46 | PHYS DOC ---
Past Medical History Past Medical History: Hypertension, Other Additional Past Medical Histor: GESTATIONAL DM Past Surgical History: Cholecystectomy, Additional Past Surgical Histo: I AND D Smoking Status: Current Every Day Smoker Alcohol Use: Occasionally Drug Use: None General Adult EDM: Chief Complaint: BACK PAIN - NO INJURY HPI: HPI: Patient is a 30 year old female who present to ER for evaluation of low back pain radiating to right buttock area, symptoms started 2 days ago. Patient said she was seen on a wooden bench for a while and when she stood up see having pain. Patient denies any injury. Patient denies any bowel bladder incontinence. Patient denies any abdominal pain, no nausea vomiting. Patient denies any weakness or numbness in her lower extremity. Review of Systems: Review of Systems: Constitutional: Denies fever or chills. [] Eyes: Denies change in visual acuity. [] HENT: Denies nasal congestion or sore throat. [] Respiratory: Denies cough or shortness of breath. [] Cardiovascular: Denies chest pain or edema. [] GI: Denies abdominal pain, nausea, vomiting, bloody stools or diarrhea. [] : Denies dysuria. [] Musculoskeletal: Positive for low back pain, denies any knee pain. Integument: Denies rash. [] Neurologic: Denies headache, focal weakness or sensory changes. [] Endocrine: Denies polyuria or polydipsia. [] Lymphatic: Denies swollen glands. [] Psychiatric: Denies depression or anxiety. [] Heart Score: C/O Chest Pain: N/A Risk Factors: Risk Factors: DM, Current or recent (<one month) smoker, HTN, HLP, family history of CAD, obesity. Risk Scores: Score 0 - 3: 2.5% MACE over next 6 weeks - Discharge Home Score 4 - 6: 20.3% MACE over next 6 weeks - Admit for Clinical Observation Score 7 - 10: 72.7% MACE over next 6 weeks - Early Invasive Strategies Current Medications: Current Medications Medications (Trade) Dose Ordered Sig/Stephany Start Time Stop Time Status Last Admin Dose Admin Ketorolac Tromethamine (Toradol Im) 60 mg 1X ONCE 10/16/20 10:00 10/16/20 10:01 DC 10/16/20 10:00 60 MG Orphenadrine Citrate (Norflex) 60 mg 1X ONCE 10/16/20 10:00 10/16/20 10:01 DC 10/16/20 10:14 60 MG Allergies: Allergies: Allergies Coded Allergies Type Severity Reaction Last Updated Verified No Known Drug Allergies 02/11/17 No Physical Exam: PE: Constitutional: Well developed, well nourished, no acute distress, non-toxic appearance. Morbidly obese HENT: Normocephalic, atraumatic, bilateral external ears normal, oropharynx moist, no oral exudates, nose normal. [] Eyes: PERRLA, EOMI, conjunctiva normal, no discharge. [] Neck: Normal range of motion, no tenderness, supple, no stridor. [] Cardiovascular:Heart rate regular rhythm, no murmur [] Lungs & Thorax: Bilateral breath sounds clear to auscultation [] Abdomen: Bowel sounds normal, soft, no tenderness, no masses, no pulsatile masses. [] Skin: Warm, dry, no erythema, no rash. [] Back: No tenderness, no CVA tenderness. [] Extremities: No tenderness, no cyanosis, no clubbing, ROM intact, no edema. [] Neurologic: Alert and oriented X 3, normal motor function, normal sensory function, no focal deficits noted. [] Psychologic: Affect normal, judgement normal, mood normal. [] Current Patient Data: Labs: Laboratory Tests Test 10/16/20 09:10 10/16/20 09:15 Urine Collection Type Void Urine Color Yellow Urine Clarity Clear Urine pH 6.0 (<5.0-8.0) Urine Specific [place] 1.020 (1.000-1.030) Urine Protein Negative mg/dL (NEG-TRACE) Urine Glucose (UA) Negative mg/dL (NEG) Urine Ketones (Stick) Negative mg/dL (NEG) Urine Blood Negative (NEG) Urine Nitrite Negative (NEG) Urine Bilirubin Negative (NEG) Urine Urobilinogen Dipstick 0.2 mg/dL (0.2 mg/dL) Urine Leukocyte Esterase Negative (NEG) Urine RBC 0 /HPF (0-2) Urine WBC 1-4 /HPF (0-4) Urine Squamous Epithelial Cells Mod /LPF Urine Bacteria 0 /HPF (0-FEW) Urine Mucus Slight /LPF POC Urine HCG, Qualitative Hcg negative (Negative) Vital Signs: Vital Signs Date Time Temp Pulse Resp B/P (MAP) Pulse Ox O2 Delivery O2 Flow Rate FiO2 10/16/20 08:42 98.2 91 18 179/107 (131) 100 Room Air 98.2 EKG: EKG: EKG was done at 1030, heart rate of 47 bpm, sinus bradycardia, no ST segment ovation Radiology/Procedures: Radiology/Procedures: [facility] [address] [place] [address] IMAGING REPORT Signed PATIENT: SHANNAN DUFFY RACCOUNT: [id number] : 1990 LOCATION: ER AGE: 30 SEX: F EXAM STATUS: DEP ER ORD. PHYSICIAN: BETI BAINS DO REASON: LOWER BACK PAIN SINCE SITTING ON BLEACHERS A FEW DAYS AGO PROCEDURE: LUMBAR SPINE 2-3V INDICATION: Reason: LOWER BACK PAIN SINCE SITTING ON BLEACHERS A FEW DAYS AGO / Spl. Instructions: / History: COMPARISON: July 2017 IMPRESSION: Lumbar spine: 3 views obtained. No acute fracture or dislocation. Electronically signed by: James Bates MD (10/16/2020 9:52 AM) [id number] DICTATED and SIGNED BY: JAMES BATES MD DATE: 10/16/20 [id number] 0 Course & Med Decision Making: Course & Med Decision Making Pertinent Labs and Imaging studies reviewed. (See chart for details) Patient is a 30-year-old female who is obese presented to ER due to low back pain that radiates to the right buttock area consistent with sciatica pain. X- ray of the lumbar spine did not show any acute problem. Patient was given medication in the ER, see few months below. Patient will be discharged home. Patient was advised to follow-up with her family physician for outpatient e valuation and treatment. Dragon Disclaimer: Dragsravan Disclaimer: This electronic medical record was generated, in whole or in part, using a voice recognition dictation system. Departure Departure Impression: Primary Impression: Sciatica of right side Disposition: HOME / SELF CARE / HOMELESS Condition: STABLE Referrals: NO PCP (PCP) Please follow up with [facility] this week. [address], [address] [place] [address] Phone number: [phone] Patient Instructions: Sciatica with [facility] Additional Instructions: Thank you for visiting our Emergency Department. We appreciate you trusting us with your care. If any additional problems come up don't hesitate to return to visit us. Please follow up with your primary care provider so they can plan additional care if needed and know about the problem that you had. If symptoms worsen come back to the Emergency Department. Any concerning symptoms that start such as chest pain, shortness of air, weakness or numbness on one side of the body, running high fevers or any other concerning symptoms return to the ER. Scripts Naproxen Sodium (ANAPROX DS) 550 Mg Tablet 1 TAB PO BID PRN for PAIN for 15 Days, #30 TAB 0 Refills Prov: BETI BAINS DO 10/16/20 BETI BAINS DO Oct 16, 2020 10:46
[2020-10-16] MEDS ORDERED: NAPR-682 PO (10:51)
--- NOTE | 2020-10-16 13:43 | RAD ---
INDICATION: Reason: LOWER BACK PAIN SINCE SITTING ON BLEACHERS A FEW DAYS AGO / Spl. Instructions: / History: COMPARISON: July 2017 IMPRESSION: Lumbar spine: 3 views obtained. No acute fracture or dislocation. Electronically signed by: Calderon Bates MD (10/16/2020 9:52 AM) [id number]
== END 2020-10-16 11:01 | disposition home or self-care (01) ==
LOC: ER 08:31
DX: M54.41 Lumbago with sciatica, right side (principal); I10 Essential (primary) hypertension; F17.200 Nicotine dependence, unspecified, uncomplicated; Z90.49 Acquired absence of other specified parts of digestive tract
CPT/HCPCS: 72100; 81001; 81025; 96372; 99284; J1885; J2360